=== PATIENT | male | born 1940 | race Caucasian/White ===

== ENCOUNTER 2018-10-09 09:52 | Outpatient (CLI) | payer MEDICARE | END 2018-10-09 09:53 | disposition critical access hospital (66) | LOC: EMS 09:52 | PROVIDERS: ATTEND Surgery | DX: M79.89 Other specified soft tissue disorders (principal); R23.9 Unspecified skin changes | CPT/HCPCS: A0425; A0429 ==

== ENCOUNTER 2018-10-09 10:10 | Inpatient (IN) | payer MEDICARE, OTHER ==
--- NOTE | 2018-10-09 10:30 | ED Physician Documentation ---
History of Present Illness - Stated complaint Stated Complaint: LEG PX - Chief complaint Chief Complaint: Ext Problem - History obtained from History obtained from: Patient, EMS - History of Present Illness Timing: Other (1 year ago) Pain level max: 0 Pain level now: 0 - Additonal information Additional information: 78-year-old male presents to the emergency department stating that his left leg is swollen more red than usual. This been ongoing for the past year but worsening recently. Has not seen his doctor for the past 3 years. He is a diabetic. Does not check his blood sugar. [facility] Has had a right AKA. Nothing makes it better or worse. Not having pain Review of Systems Ten Systems: 10 systems reviewed and negative Constitutional: denies: Fever, Chills Cardiac: denies: Chest pain / pressure Respiratory: denies: Cough GI: denies: Abdominal Pain, Vomiting, Diarrhea Skin: denies: Rash Musculoskeletal: denies: Neck pain, Back pain PD PAST MEDICAL HISTORY - Past Medical History Past Medical History: Yes Endocrine/Autoimmune: Type 2 diabetes - Past Surgical History Past Surgical History: Yes Other past surgical history: R AKA - Present Medications Home Medications: Ambulatory Orders Medication Instructions Recorded Confirmed Aspirin [Aspirin EC] 81 mg PO DAILY 10/09/18 10/09/18 Atorvastatin Calcium 40 mg PO DAILY 10/09/18 10/09/18 Glipizide 5 mg PO BID 10/09/18 10/09/18 Ipratropium/Albuterol [Combivent 1 puffs INH RTQID 10/09/18 10/09/18 Respimat] Loratadine [Claritin] 10 mg PO DAILY 10/09/18 10/09/18 Metoprolol Tartrate 25 mg PO BID 10/09/18 10/09/18 Prazosin HCl 1 mg PO DAILY PM 10/09/18 10/09/18 Ranitidine HCl [Acid River Guide] 150 mg PO BID 10/09/18 10/09/18 - Allergies Allergies/Adverse Reactions: Allergies Allergy/AdvReac Type Severity Reaction Status Date / Time Sulfa (Sulfonamide Allergy Unknown Verified 10/09/18 10:17 Antibiotics) - Living Situation Living Arrangement: reports: At home - Social History Does the pt smoke?: Yes Does the pt drink ETOH?: Yes - Family History Family history: reports: Non contributory PD ED PE NORMAL - Vitals Vital signs reviewed: Yes - General General: Alert and oriented X 3, No acute distress, Well developed/nourished - HEENT HEENT: PERRL, Moist mucous membranes - Neck Neck: Supple, no meningeal sign - Cardiac Cardiac: RRR - Respiratory Respiratory: No respiratory distress, Clear bilaterally - Abdomen Abdomen: Soft, Non tender, Non distended - Back Back: No spinal TTP - Derm Derm: Warm and dry - Extremities Extremities: Other (Left lower extremity swelling and erythema from the knee down. There is diffuse scaling of the skin with hyperkeratosis) - Neuro Neuro: Alert and oriented X 3 - Psych Psych: Normal mood, Normal affect Results - Vitals Vitals: Vital Signs - 24 hr 10/09/18 10/09/18 10:14 10:38 Temperature 36.3 C L 36.7 C Heart Rate 84 80 Respiratory 20 25 H Rate Blood Pressure 111/87 H 97/82 H O2 Saturation 93 94 Oxygen O2 Source Room air - Labs Labs: Laboratory Tests 10/09/18 10/09/18 10/09/18 10:27 10:35 10:35 WBC 8.2 RBC 5.15 Hgb 14.5 Hct 44.3 MCV 86.0 MCH 28.3 MCHC 32.9 RDW 15.5 H Plt Count 238 MPV 8.3 Neut # (Auto) 5.8 Lymph # (Auto) 1.5 Thomas # (Auto) 0.7 Eos # (Auto) 0.2 Baso # (Auto) 0.0 Absolute Nucleated RBC 0.00 Nucleated RBC % 0.0 ESR Sodium 134 L Potassium 3.7 Chloride 96 L Carbon Dioxide 29 Anion Gap 9.0 BUN 10 Creatinine 1.0 Estimated GFR (MDRD) 72 L Glucose 139 H Glycated Hemoglobin 6.3 H Estim Average Glucose 134 H Calcium 8.7 Total Bilirubin 0.6 AST 23 ALT 20 Alkaline Phosphatase 90 C-Reactive Protein Total Protein 6.5 L Albumin 2.8 L Globulin 3.7 Albumin/Globulin Ratio 0.8 L Lipase 42 10/09/18 10/09/18 10:35 10:35 WBC RBC Hgb Hct MCV MCH MCHC RDW Plt Count MPV Neut # (Auto) Lymph # (Auto) Thomas # (Auto) Eos # (Auto) Baso # (Auto) Absolute Nucleated RBC Nucleated RBC % ESR 26 H Sodium Potassium Chloride Carbon Dioxide Anion Gap BUN Creatinine Estimated GFR (MDRD) Glucose Glycated Hemoglobin Estim Average Glucose Calcium Total Bilirubin AST ALT Alkaline Phosphatase C-Reactive Protein < 1.0 Total Protein Albumin Globulin Albumin/Globulin Ratio Lipase - Rads (name of study) Left foot x-ray Radiology: Prelim report reviewed, EMP read contemporaneously, See rad report (Lucencies overlying first metatarsal head and plantar base of great toe proximal phalanx may be related to osteomyelitis and/or superimposed large soft tissue ulceration. Consider MRI to further characterize. 2. Potential recent proximal fourth metatarsal fracture. Recommend clinical correlation. ) PD MEDICAL DECISION MAKING - ED course Complexity details: reviewed results, re-evaluated patient, considered tiffani jaime, d/w patient, d/w family, d/w client relationship consultant ED course: 78-year-old male presents to the emergency department with left lower extremity swelling and erythema. X-ray is concerning for osteomyelitis. [facility] Will admit here for IV antibiotics and further care. Discussed case Dr. Quintana, hospitalist who accepts. Also discussed case with Dr. Franks, orthopedist. This document was made in part using voice recognition software. While efforts are made to proofread this document, sound alike and grammatical errors may occ ur. Departure - Departure Disposition: 66 [facility] DC/Xfemelia Clinical Impression: Noncompliance with diabetes treatment Osteomyelitis Qualifiers: Osteomyelitis type: unspecified type Osteomyelitis location: foot Laterality: left Qualified Code(s): M86.9 - Osteomyelitis, unspecified Diabetic neuropathy, type II diabetes mellitus Qualifiers: Diabetes mellitus group home insulin use: without middle or intermediate school principal use Qualified Code(s): E11.40 - Type 2 diabetes mellitus with diabetic neuropathy, unspecified HTN (hypertension) Qualifiers: Hypertension type: essential hypertension Qualified Code(s): I10 - Essential (primary) hypertension Condition: Stable Discharge Date/Time: 10/09/18 13:26
[2018-10-09 10:42] LABS: BASOPHILS % (AUTO) 0.5 %; EOSINOPHILS # (AUTO) 0.2 10^3/uL (0.0-0.7); EOSINOPHILS % (AUTO) 2.3 %; HGB - HEMOGLOBIN 14.5 g/dL (14.0-18.0); LYMPHOCYTES # (AUTO) 1.5 10^3/uL (1.5-3.5); LYMPHOCYTES % (AUTO) 18.3 %; MEAN CORPUSCULAR HEMOGLOBIN 28.3 pg (27.0-31.0); MEAN CORPUSCULAR HGB CONC 32.9 g/dL (32.0-36.0); MEAN PLATELET VOLUME 8.3 fL (7.4-11.4); MONOCYTES # (AUTO) 0.7 10^3/uL (0.0-1.0); MONOCYTES % (AUTO) 8.1 %; NEUTROPHILS # (AUTO) 5.8 10^3/uL (1.5-6.6); NEUTROPHILS % (AUTO) 70.8 %; PLT - PLATELET COUNT 238 10^3/uL (130-450); RED BLOOD COUNT 5.15 10^6/uL (4.70-6.10); RED CELL DISTRIBUTION WIDTH 15.5 % (12.0-15.0); WHITE BLOOD COUNT 8.2 x10^3/uL (4.8-10.8)
[2018-10-09 10:54] LABS: ALBUMIN 2.8 g/dL (3.2-5.5); ALBUMIN/GLOBULIN RATIO 0.8 (1.0-2.2); BILIRUBIN,TOTAL 0.6 mg/dL (0.2-1.0); CALCIUM 8.7 mg/dL (8.5-10.3); TOTAL PROTEIN 6.5 g/dL (6.7-8.2)
--- NOTE | 2018-10-09 11:58 | XRAY Report ---
Reason: L foot swelling, possible osteo? Procedure Date: 10/09/2018 Accession Number: [id number] / [id number] Procedure: XR - Foot 3 View LT CPT Code: FULL RESULT: EXAM: LEFT FOOT RADIOGRAPHY EXAM DATE: 10/09/2018 11:19 AM. CLINICAL HISTORY: Left foot swelling, possible osteomyelitis. COMPARISON: XR CHEST PA AND LAT 05/14/2007 8:58 AM. TECHNIQUE: 3 views. FINDINGS: Bones: Lucencies overlying first metatarsal head and plantar base of great toe proximal phalanx. Potential cortical disruption along proximal fourth metatarsal, question recent fracture. Joints: No dislocation. Soft Tissues: Deep soft tissue ulcer plantar and medial to left first metatarsophalangeal joint. Diffuse soft tissue swelling. Atherosclerotic arterial calcifications. IMPRESSION: 1. Lucencies overlying first metatarsal head and plantar base of great toe proximal phalanx may be related to osteomyelitis and/or superimposed large soft tissue ulceration. Consider MRI to further characterize. 2. Potential recent proximal fourth metatarsal fracture. Recommend clinical correlation. RADIA
[2018-10-09] MEDS ORDERED: PIPERACILLIN/TAZOBACTAM 3.375 GM in SODIUM CHLORIDE 0.9% MINIBAG 100 ML IV STA (12:20)
[2018-10-09] MEDS ORDERED: HYDROcod/ACETAM 10 MG/325 MG TABLET PO PRN (12:42)
[2018-10-09] MEDS ORDERED: HYDROmorphone 1 MG/ML CARPUJECT IVP PRN (12:42)
[2018-10-09] MEDS ORDERED: ZOLPIDEM 5 MG TABLET PO PRN (12:42)
[2018-10-09] MEDS ORDERED: VANCOMYCIN PER PHARMACY 100 GM in SODIUM CHLORIDE 0.9% 250 ML IV SCH (13:00)
[2018-10-09] MEDS ORDERED: VANCOMYCIN INJ 1.5 GM in SODIUM CHLORIDE 0.9% 500 ML IV SCH (13:00)
--- NOTE | 2018-10-09 13:11 | HISTORY & PHYSICAL EXAMINATION ---
Chief Complaint - Chief Complaint Chief Complaint: Worsening Left lower extremity edema with associated redness History of Present Illness - Admitted From Admitted From:: ED - History Obtained From Records [facility]ed[facility], [facility] records unavailable History obtained from: Patient Exam Limitations: None - History of Present Illness HPI Comment/Other: This is a 78-year-old With a past medical history significant for hypertension, hyperlipidemia, COPD, NIDDM, PTSD, diabetic neuropathy, chronic kidney disease, history of a right [id number] amputation, is a [facility] was not seen a doctor in approximately 2 to 3 years complaints of left lower extremity worsening redness with associated swelling and pain to the great toe. Patient had been going to [facility] and having his medications refilled but without seeing a physician. Patient's last debridement was on February 2017 for which he went to the [facility] in [place] and essentially was transferred to [facility] for a nonhealing diabetic left foot ulcer. Patient is essentially here for worsening of the pain around the ulcerative lesion site to his great toe with x-rays showing first metatarsal head and plantar base great toe/proximal phalanx osteomyelitis and or superimposed large soft tissue ulceration. In addition potential recent proximal fourth metatarsal fracture was also seen on left foot x-ray today. Patient denies fevers, chills, maculopapular rashes, GI or symptoms. Patient denies chest pain, shortness of breath, nausea vomiting hematemesis or hematochezia. Patient denies having heart disease heart failure or any kidney abnormalities. Patient's creatinine was 1.0 with normal electrolytes and a normal CBC. Patient CRP Was less than 1.0. Orthopedic surgery will be consulted. Patient was at bedside eating a bag of chips and a [employer] very candid about being placed on insulin sliding scale. History - Past Medical History Cardiovascular: reports: Hypertension, High cholesterol Respiratory: reports: COPD Neuro: reports: Migraines Endocrine/Autoimmune: reports: Type 2 diabetes Psych: reports: Post traumatic stress disorder MRSA Hx?: Yes Other Past Medical History: Pt poor historian. - Past Surgical History Ortho: reports: Amputation HEENT: reports: Cataracts - POLST Patient has POLST: No Meds/Allgy - Home Medications Home Medications: Ambulatory Orders Medication Instructions Recorded Confirmed Atorvastatin Calcium 40 mg PO DAILY 10/09/18 10/09/18 Glipizide 5 mg PO BID 10/09/18 10/09/18 Metoprolol Tartrate 25 mg PO BID 10/09/18 10/09/18 Prazosin HCl 1 mg PO DAILY PM 10/09/18 10/09/18 Ranitidine HCl [Acid Frozen Pie Maker] 150 mg PO BID 10/09/18 10/09/18 - Allergies Allergies/Adverse Reactions: Allergies Allergy/AdvReac Type Severity Reaction Status Date / Time Sulfa (Sulfonamide Allergy Unknown Verified 10/09/18 10:17 Antibiotics) Review of Systems - All Other Systems All Other Systems: reports: Reviewed and negative Prior Level of Functionality: Patient is independent and ambulates via wheelchair however at times walks on left lower extremity. Home ADLs independent Exam - Vital Signs Vital Signs: Vital Signs x48h Temp Pulse Resp BP Pulse Ox 10/09/18 10:38 36.7 C 80 25 H 97/82 H 94 10/09/18 10:14 36.3 C L 84 20 111/87 H 93 - Physical Exam General Appearance: positive: No acute distress, Alert Eyes Bilateral: positive: Normal inspection, PERRL, EOMI ENT: positive: ENT inspection nml, Pharynx nml, No signs of dehydration Neck: positive: Nml inspection, Thyroid nml, No JVD, Trachea midline Respiratory: positive: Chest non-tender, No respiratory distress, Breath sounds nml Cardiovascular: positive: Regular rate & rhythm, No murmur, No gallop Peripheral Pulses: positive: 0 (Unable to palpate dorsalis pedis on the left) Abdomen: positive: Non-tender, No organomegaly, Nml bowel sounds, No distention. negative: Tenderness Back: positive: Nml inspection Skin: positive: Warm, Other (Hyperkeratosis with erythematous involvement of the entire left lower extremity. Nonhealing diabetic ulcer to the base of the left great toe with no purulence and surrounding hard granulated tissue and callus. Some evidence of necrosis noted per) Extremities: positive: Other (There is market erythematous left lower extremity involvement with diabetic ulcerative lesion to the base of the great toe. Hyperkeratosis is seen along with thickening of the skin. There is presence of a right AKA.) Neurologic/Psychiatric: positive: Oriented x3, CN's nml (2-12), Sensory loss (Decreased sensation to two-point discrimination as well as soft touch to the left lower extremity. Patient however feels pain over the left great toe base.) Conclusion/Plan - Problem List (1) Chronic osteomyelitis involving ankle and foot Conclusion/Plan: Patient's left lower extremity has been an issue for quite some time. Last incision drainage debridement was apparently done 02/20 in [facility] and this was transferred then to [facility]. However, patient due to noncompliance and poor follow-up likely has chronic infection to the metatarsal head and plantar base of great toe with proximal phalanx involvement seen on x-rays. There is also a potential recent proximal fourth metatarsal fracture. Will obtain an MRI of the entire left leg to include the tibia-fibula foot and ankle. Orthopedic surgery to be consulted for possible amputation. We will continue w ith IV vancomycin/Zosyn for empiric coverage. If surgery is contemplated would send amputated specimen to pathology. Wound care consult will be ordered. Qualifiers: Laterality: left Qualified Code(s): M86.672 - Other chronic osteomyelitis, left ankle and foot (2) Cellulitis of leg without foot Conclusion/Plan: Patient with likely underlying peripheral vascular disease. Was unable to obtain a palpable dorsalis pedis to the left foot. Obtain arterial Doppler flow/SUMA. Patient with chronic edema to the left lower extremity. Patient was placed on IV vancomycin/Zosyn for empiric coverage. Wound care consult placed. Pain control, glycemic control indicated. (3) Diabetes mellitus type 2 with complications, uncontrolled Conclusion/Plan: Patient has macro and microvascular Complications to his NIDDM. Patient with a left AKA, likely has underlying vascular disease with poor wound healing. Patient is obviously noncompliant, hemoglobin A1c to follow as well as an insulin sliding scale with possible bolus basal coverage. Diabetic education counseling indicated. (4) Diabetic neuropathy, type II diabetes mellitus Conclusion/Plan: Patient has numbness to the left lower extremity likely from chronic uncontrol led diabetic macro and microvascular changes. Patient to possibly benefit from Neurontin versus Lyrica. Continue to control and manage underlying comorbidities. Qualifiers: Diabetes mellitus long-term insulin use: without long-term use Qualified Code(s): E11.40 - Type 2 diabetes mellitus with diabetic neuropathy, unspecified (5) Diabetic ulcer of toe Conclusion/Plan: Patient has a nonhealing chronic diabetic ulcer with associated osteomyelitis seen on x-ray. Would continue with aggressive glycemic control, wound care with consult to follow, possible need for surgery to correct underlying ost eomyelitis. Qualifiers: Diabetes mellitus type: type 2 Non-pressure ulcer stage: with necrosis of bone (6) Noncompliance with diabetes treatment Conclusion/Plan: Patient will require diabetic education and counseling for glycemic control. (7) CKD (chronic kidney disease) Conclusion/Plan: Unclear of baseline creatinine. Upon admission patient's creatinine was 1.0 will obtain old records. Qualifiers: Chronic kidney disease stage: unspecified stage Qualified Code(s): N18.9 - Chronic kidney disease, unspecified (8) HTN (hypertension) Conclusion/Plan: Continue with oral BP meds. Control for BP excursions Qualifiers: Hypertension type: essential hypertension Qualified Code(s): I10 - Essential (primary) hypertension (9) Hypolipidemia Conclusion/Plan: Obtain a lipid panel fasting. Resume a statin if indicated. (10) Advanced care planning/counseling discussion Conclusion/Plan: Patient's multiple medical conditions were thoroughly discussed along with Disease management, plan of care and trajectory of illness. Patient would like to be a DNR and will need [facility] - Lab Results Lab results reviewed: Yes Fish Bones: 10/09/18 10:35 10/09/18 10:35 - Diagnostic Imaging Results Diagnostic Imaging Results: positive: Final report reviewed - EKG Results EKG Interpreted Independently: No Core Measures - Anticipated LOS I expect patient to be DC'd or transferred within 96 hours.: Yes - Issues Hospital Issues and Management Plan: Patient is pending an MRI and based on this patient may or may not received a TMA versus BKA if Extensive osteomyelitis is seen. Orthopedic surgery to evaluate. Patient may need TCU placement. - DVT/VTE - Prophylaxis VTE/DVT Device ordered at admit?: No Not Ordered - Medical Reason: Contraindicated (Patient with active infection) VTE/DVT Prophylaxis med ordered at admit?: Yes - Stroke - Rehab Assessment Rehab services assessment to be ordered?: No Not Ordered - Medical Reason: Not indicated - AMI - Statin at Admit Aspirin Prescribed on Admit: Yes
[2018-10-09] MEDS ORDERED: VANCOMYCIN INJ 2 GM in SODIUM CHLORIDE 0.9% 500 ML IV STA (13:25)
[2018-10-09] MEDS ORDERED: SODIUM CHLORIDE 0.9% 500 ML IV ONE (14:01)
[2018-10-09] MEDS: HEPARIN 5,000 UNIT/ML VIAL SUBQ SCH ×2 (14:11→21:46)
[2018-10-09] MEDS: SODIUM CHLORIDE FLUSH 0.9% 10 ML SYRINGE IVP PRN (14:14)
[2018-10-09] MEDS ORDERED: SODIUM CHLORIDE 0.9% 500 ML IV PRN (14:21)
[2018-10-09 14:54] LABS: HB2 TOTAL 15.2 g/dL; HEMOGLOBIN A1C 0.69 g/dL; HEMOGLOBIN A1C % 6.3 % (4.6-6.2)
[2018-10-09] MEDS: glipiZIDE 5 MG TABLET PO SCH (17:08)
[2018-10-09] MEDS: INSULIN ASPART 300 UNIT/3 ML PEN SUBQ SCH ×2 (17:15→21:07)
[2018-10-09] MEDS: SODIUM CHLORIDE FLUSH 0.9% 10 ML SYRINGE IVP SCH (17:16)
[2018-10-09] MEDS: PIPERACILLIN/TAZOBACTAM 4.5 GM in SODIUM CHLORIDE 0.9% MINIBAG 100 ML IV SCH (18:47)
--- NOTE | 2018-10-09 19:20 | MRI Report ---
Reason: Osteomyelitis Procedure Date: 10/09/2018 Accession Number: [id number] / [id number] Procedure: MRI - Foot LT W/O CPT Code: FULL RESULT: EXAM: LEFT FOREFOOT MRI WITHOUT CONTRAST EXAM DATE: 10/09/2018 05:27 PM. CLINICAL HISTORY: Diabetic ulcer plantar aspect great toe. Cellulitis foot and leg. COMPARISON: FOOT 3 VIEW LT 10/09/2018 11:02 AM XR CHEST PA AND LAT 05/14/2007 8:58 AM. TECHNIQUE: Multiplanar, multisequence T1-weighted and fluid-sensitive sequences of the forefoot without contrast. Other: None. FINDINGS: Bones: No fractures or subluxations. No marrow edema. No bone lesions. Negative for marrow edema or decreased marrow signal T1-weighted images to suggest osteomyelitis. Articular Cartilage: Unremarkable. Tendons: Tenosynovitis extensor tendon second toe. Tenosynovitis extensor tendon third toe. Musculature: Diffuse myositis. Other: Diffuse forefoot myositis. The visualized portion of the tarsal tunnel is unremarkable. No intermetatarsal bursitis. Large ulceration 3.4 cm in AP dimension at 2.3 cm in height medial aspect first metatarsal phalangeal joint. Negative for associated abscess. Increased fluid at the intermetatarsal bursa first and second metatarsal heads. Severe edema with cellulitis dorsum foot. Possible subcutaneous fluid collection or abscess dorsum foot 4.0 x 1.2 cm in transverse dimension and 3.5 cm in length dorsal aspect second metatarsal. IMPRESSION: 1. Large ulceration medial aspect first metatarsal phalangeal joint with no associated osteomyelitis. 2. Small fluid collection first and second metatarsal head intermetatarsal bursa. 3. Diffuse forefoot cellulitis and myositis. 4. Second and third digit extensor tendon tenosynovitis. 5. Possible loculated subcutaneous fluid collection dorsal aspect forefoot 4.0 x 1.2 cm in transverse dimension and 3.5 cm in length. Possible early abscess. RADIA
[2018-10-09] MEDS: FAMOTIDINE 20 MG TABLET PO SCH (21:01)
[2018-10-09] MEDS: PRAZOSIN 1 MG CAPSULE PO SCH (21:01)
[2018-10-09] MEDS: METOPROLOL TARTRATE 25 MG TABLET PO SCH (21:01)
[2018-10-09] MEDS: ATORVASTATIN 40 MG TABLET PO SCH (21:06)
[2018-10-10] MEDS: PIPERACILLIN/TAZOBACTAM 4.5 GM in SODIUM CHLORIDE 0.9% MINIBAG 100 ML IV SCH ×4 (00:18→17:33)
[2018-10-10] MEDS: SODIUM CHLORIDE FLUSH 0.9% 10 ML SYRINGE IVP SCH ×3 (00:19→17:13)
[2018-10-10] MEDS: VANCOMYCIN INJ 1 GM, VANCOMYCIN INJ 500 MG in SODIUM CHLORIDE 0.9% 500 ML IV SCH ×2 (02:08→15:01)
[2018-10-10] MEDS: IPRATROPIUM/ALBUTEROL 3 ML NEB INH PRN ×2 (02:44→17:30)
[2018-10-10] MEDS ORDERED: SODIUM CHLORIDE FLUSH 0.9% 10 ML SYRINGE ONE ×2 (03:11→06:42)
[2018-10-10] MEDS ORDERED: LORazepam 1 MG TABLET PO PRN (03:15)
[2018-10-10] MEDS: HEPARIN 5,000 UNIT/ML VIAL SUBQ SCH (06:24)
[2018-10-10] MEDS: ONDANSETRON ODT 4 MG TABLET TL PRN (06:46)
[2018-10-10 07:24] LABS: BASOPHILS % (AUTO) 0.7 %; EOSINOPHILS # (AUTO) 0.2 10^3/uL (0.0-0.7); EOSINOPHILS % (AUTO) 2.7 %; HGB - HEMOGLOBIN 13.4 g/dL (14.0-18.0); LYMPHOCYTES # (AUTO) 1.3 10^3/uL (1.5-3.5); LYMPHOCYTES % (AUTO) 22.4 %; MEAN CORPUSCULAR HEMOGLOBIN 27.8 pg (27.0-31.0); MEAN CORPUSCULAR HGB CONC 32.4 g/dL (32.0-36.0); MEAN CORPUSCULAR VOLUME 85.9 fL (80.0-94.0); MEAN PLATELET VOLUME 8.4 fL (7.4-11.4); MONOCYTES # (AUTO) 0.4 10^3/uL (0.0-1.0); MONOCYTES % (AUTO) 6.7 %; NEUTROPHILS % (AUTO) 67.5 %; PLT - PLATELET COUNT 194 10^3/uL (130-450); RED BLOOD COUNT 4.81 10^6/uL (4.70-6.10); RED CELL DISTRIBUTION WIDTH 15.7 % (12.0-15.0)
[2018-10-10 07:31] LABS: ALBUMIN 2.6 g/dL (3.2-5.5); CALCIUM 8.4 mg/dL (8.5-10.3); PHOSPHORUS 3.6 mg/dL (2.5-4.6)
[2018-10-10] MEDS: INSULIN ASPART 300 UNIT/3 ML PEN SUBQ SCH ×4 (08:36→21:27)
--- NOTE | 2018-10-10 09:00 | Ultrasound Report ---
Reason: PAD Procedure Date: 10/10/2018 Accession Number: [id number] / [id number] Procedure: US - Duplex Lwr Ext Arterial LT CPT Code: FULL RESULT: EXAM: LEFT LOWER EXTREMITY ARTERIAL DOPPLER ULTRASOUND EXAM DATE: 10/10/2018 08:15 AM. CLINICAL HISTORY: Peripheral arterial disease. No dorsalis pedis pulse. COMPARISON: None. TECHNIQUE: Real-time sonographic vascular imaging was performed by the flight deck officer, utilizing color-flow, Doppler flow, and spectral analysis. Multiple retail representative static images were saved for review. FINDINGS: Grayscale interrogation of the left lower extremity demonstrates diffuse atherosclerotic disease. The left common femoral artery and profunda femoris are patent by color Doppler on both demonstrate a relatively brisk preserved arterial upstroke on spectral Doppler. The SFA is occluded throughout its essentially entire course. There is reconstitution at the level of the popliteal artery with tardus parvus waveform which persists as a patent three-vessel supply to the foot with tardus parvus waveform in the anterior, posterior tibial arteries and peroneal artery. Tardus parvus flow is detected by spectral Doppler the dorsalis pedis artery. Left Lower Extremity: WARP TIER: PSV 114 cm/sec. PSFA: Occluded. MSFA: Occluded. DSFA: Occluded. PFA: PSV 115 cm/sec. POP: PSV 68 cm/sec. FESTUS: PSV 34 cm/sec. HAND FOLDER: PSV 44 cm/sec. AURELIA: PSV 26 cm/sec. DPA: PSV 7 cm/sec. IMPRESSION: Long segment occlusion of the SFA with reconstitution at the level of the popliteal artery from the deep femoral artery and three-vessel patency below the knee. Recommendation: Attempt at worship of in-line flow with endovascular recanalization of the SFA versus bypass. Findings were discussed with Dr. Evans in person at the time of the examination interpretation. RAHEEM
[2018-10-10] MEDS ORDERED: HEPARIN 5,000 UNIT/ML VIAL IVP ONE (11:30)
[2018-10-10] MEDS ORDERED: SODIUM CHLORIDE 0.9% MINIBAG 100 ML IV ONE (11:36)
[2018-10-10] MEDS: METOPROLOL TARTRATE 25 MG TABLET PO SCH ×2 (11:46→21:28)
[2018-10-10] MEDS: glipiZIDE 5 MG TABLET PO SCH ×2 (11:46→17:32)
[2018-10-10] MEDS: FAMOTIDINE 20 MG TABLET PO SCH ×2 (11:46→21:32)
[2018-10-10] MEDS: POLYETHYLENE GLYCOL 3350 17 GM PACKET PO SCH (11:51)
[2018-10-10] MEDS: HEPARIN 25000UNITS/500ML (D5W) 25,000 UNIT/500 ML BAG IV SCH (12:22)
--- NOTE | 2018-10-10 15:41 | CONSULTATION NOTE ---
DATE OF SERVICE: 10/09/2018 Physician: Maya Franks MD ORTHOPEDIC CONSULTATION REQUESTING PROVIDER: Amelia Evans MD INDICATIONS FOR THE CONSULTATION: Left foot wound and osteomyelitis. HISTORY OF PRESENT ILLNESS: Patient is a 78-year-old male admitted through the emergency room with increasing pain in the left foot that has had a chronic ulceration for a long period of time, somewhat indeterminate. Patient is status post a right above-knee amputation for infection of his right foot. He is diabetic. He has been a frequent visitor to the emergency room for medical problems in the last year. His history is obtained from the patient. PAST MEDICAL HISTORY: He is not an accurate historian when reviewing information given with that in the medical record, but of note is that his prior history is positive for type 2 diabetes. PAST SURGICAL HISTORY: Right AK amputation. MEDICATIONS: List reviewed. ALLERGIES: SULFA. PHYSICAL EXAMINATION: Exam shows him to be lying in bed, and arousable and semi-oriented. He does complain of some pain, not severe in his left foot, but definitely severe pain if he tries to bear weight or his foot is touched. His upper extremities seem normal, and his abdomen and pelvis are nontender. Right lower extremity has a well-healed above-knee amputation. His left foot is exposed, and he has a pinkish cellulitis that is diffuse up to just below the knee. The skin itself has crusting ichthyosis type of appearance, and his distal nails are fungal infected and curled and large. Pulses are not palpable from the knee distal, and the foot is slightly cool but seems to have normal capillary refill. The patient is able to move his foot but has pain when doing, and he claims some sensation but diminished. DIAGNOSTIC DATA: X-rays are reviewed, and the patient has lucencies in the area of the first metatarsal, but no evidence of air in the joint itself and no gross evidence of erosion of bone. IMPRESSION: This is a diabetic male in poor condition, both medically, and in regard to his general medical and healthcare and maintenance, who has a chronic open wound of his left foot and may have osteomyelitis of the first metatarsophalangeal joint. His vascular supply is in question. Recommendation is for proceeding with evaluation by Doppler ultrasound to review the status of his vascular supply and also MRI scan to evaluate for osteomyelitis. My feeling is that the patient may need revascularization of his extremity before any surgery could be undertaken, in order to have it be successful. [place] if [place] his choice, he could be transferred back for amputation once he has had a successful revascularization procedure. TD: 10/10/2018 13:33 [id number]
[2018-10-10] MEDS ORDERED: MULTIVITAMIN W/MINERALS TABLET PO SCH (16:00)
[2018-10-10] MEDS ORDERED: ASCORBIC ACID CHEW 500 MG TABLET PO SCH (16:00)
--- NOTE | 2018-10-10 17:00 | PROVIDER PROGRESS NOTE ---
Assessment/Plan - Problem List (1) Ischemic leg ulcer Assessment/Plan: The Du[plex Doppler has demonstrated femoral occlusion, but there is mild recannalization below the knee. Case discussed with IR, Dr Way, who states that larger hospitals would have the ability to perform recannalization. Wound Consult with [facility] C[facility] REGISTER SERVICER appreciated. Continue pain control meds prn. (2) Chronic osteomyelitis involving ankle and foot Qualifiers: Laterality: left Qualified Code(s): M86.672 - Other chronic osteomyelitis, left ankle and foot Assessment/Plan: Appreciate Ortho input and planning surgery perhaps. I spoke to Dr Franks today, will feed the patient as surgery will be postponed. Continue iv antibiotics. (3) Diabetes mellitus type 2 with complications, uncontrolled Assessment/Plan: Continue carb controlled diet and ss Insulin. (4) HTN (hypertension) Qualifiers: Hypertension type: essential hypertension Qualified Code(s): I10 - Essential (primary) hypertension Assessment/Plan: Continue BP meds. (5) Noncompliance with diabetes treatment Assessment/Plan: He was non-compliant with appointments to manage his chronic wound, however A1c is good. (6) Hx of right BKA Assessment/Plan: Stable - Current Meds Current Meds: Current Medications Generic Name Dose Route Start Last Admin Trade Name Freq PRN Reason Stop Dose Admin Hydrocodone Bitart/Acetaminophen 1 tab 10/09/18 12:42 10/09/18 17:08 [place] 10 Mg/325 Mg PO 1 tab Q4HR PRN Administration Pain 8 to 10 Albuterol/Ipratropium 3 ml 10/10/18 02:37 10/10/18 02:44 Duoneb INH 3 ml Q4HR PRN Administration Wheezing Atorvastatin Calcium 40 mg 10/09/18 21:00 10/09/18 21:06 Lipitor PO 40 mg QPM STEPH Administration Famotidine 20 mg 10/09/18 21:00 10/10/18 11:46 Pepcid PO 20 mg BID STEPH Administration Glipizide 5 mg 10/09/18 17:00 10/10/18 11:46 Glucotrol PO 5 mg BIDWM STEPH Administration Piperacillin Sod/Tazobactam 100 mls @ 200 mls/hr 10/09/18 18:00 10/10/18 16:07 Sod 4.5 gm/ Sodium Chloride IV Infused Q6H STEPH Infusion Vancomycin HCl 1 gm/ 500 mls @ 250 mls/hr 10/10/18 02:00 10/10/18 15:01 Vancomycin HCl 500 mg/ Sodium IV 250 mls/hr Chloride Q12H STEPH Administration Sodium Chloride 500 mls @ 0 mls/hr 10/09/18 14:21 10/10/18 07:52 Normal Saline 0.9% IV Infused Q24H PRN Infusion TKO RATE TKO Heparin Sodium/Dextrose 25,000 unit in 500 mls @ 23.95 mls/hr 10/10/18 12:00 10/10/18 12:22 IV 12 unit/kg/hr .[id number] STEPH 23.95 mls/hr Administration Protocol 12 UNIT/KG/HR Insulin Aspart 2 - 10 unit 10/09/18 17:00 10/10/18 12:04 Novolog SUBQ Not Given 0800,1200,1700,2100 [facility] Protocol Lorazepam 1 mg 10/10/18 03:15 10/10/18 03:29 Ativan PO 1 mg Q6H PRN Administration Anxiety Metoprolol Tartrate 25 mg 10/09/18 21:00 10/10/18 11:46 Lopressor PO 25 mg BID STEPH Administration Ondansetron HCl 4 mg 10/09/18 12:42 10/10/18 06:46 Zofran Odt TL 4 mg Q6HR PRN Administration Nausea / Vomiting Combivent Respimat 1 each 10/10/18 15:00 10/10/18 16:04 INH 1 each RTQID STEPH Administration Polyethylene Glycol 17 gm 10/10/18 09:00 10/10/18 11:51 Miralax PO Not Given DAILY [facility] Prazosin HCl 1 mg 10/09/18 21:00 10/09/18 21:01 Minipress PO 1 mg QPM STEPH Administration Sodium Chloride 10 ml 10/09/18 12:42 10/09/18 14:14 Normal Saline Flush 0.9% IVP 10 ml PRN PRN Administration NEEDED PER PROVIDER ORDERS Sodium Chloride 10 ml 10/09/18 17:00 10/10/18 08:42 Normal Saline Flush 0.9% IVP 10 ml 0100,0900,1700 STEPH Administration - Lab Result Fish Bone Diagrams: 10/11/18 07:59 10/11/18 07:59 - Additional Planning My Orders: My Active Orders 10/10/18 12:00 Heparin [id number]/500Ml (D5w) 25,000 unit in 500 ml IV 12 unit/kg/hr 10/10/18 15:00 Patient Own Med [Patient Own Medication] 1 each INH RTQID 10/10/18 16:00 Ascorbic Acid Chew [Vitamin C] 500 mg PO DAILY Multivitamin W/Minerals [Theragran M] 1 tab PO DAILYWM 10/10/18 17:00 Saccharomyces Boulardii [Florastor] 250 mg PO BIDWM 10/10/18 18:00 Heparin 2,500 unit IVP Q6H PRN 10/10/18 18:25 Anti Xa [FACTOR XA] [COAG] Timed 10/10/18 Lunch Carb-controlled Diet [DIET] 10/11/18 09:00 Cholecalciferol [Vitamin D3] 1,000 unit PO DAILY Zinc Sulfate 220 mg PO DAILY Subjective - Subjective Patient Reports: Resting Comfortably, Other (No pain in L leg or foot currently) Objective Vital Signs: Vital Signs - 24 hr 10/10/18 10/10/18 10/10/18 00:00 02:44 08:00 Temperature 36.4 C L 36.6 C Heart Rate 81 Heart Rate [ 77 82 Brachial] Respiratory 22 20 20 Rate Blood Pressure Blood Pressure 141/41 H 154/66 H [Right Brachial artery] O2 Saturation 92 95 10/10/18 10/10/18 10/10/18 10:30 11:46 15:51 Temperature 37.0 C Heart Rate 111 H Heart Rate [ 87 Brachial] Respiratory 22 20 Rate Blood Pressure 186/68 H Blood Pressure 122/66 [Right Brachial artery] O2 Saturation 94 Oxygen O2 Source Nasal cannula I&O (Last 24 Hrs): Intake and Output Totals x24h 10/08/18 10/09/18 10/10/18 23:59 23:59 23:59 Intake Total 1350 2290 Output Total 400 850 Balance 950 1440 General: Alert HEENT: Mucous membr. moist/pink, Other (Disheveled) Neck: Supple, No JVD Neuro: Non Focal Cardiovascular: No murmurs Respiratory: No respiratory distress, Breath sounds nml Abdomen: Soft Extremities: Other (R BKA. L leg is reddened, 1+ edema, ulcerated 1st toe. Left femoral artery 0/3 pulse.) - Results Results: Laboratory Results WBC 6.0 x10^3/uL (4.8-10.8) 10/10/18 07:12 RBC 4.81 10^6/uL (4.70-6.10) 10/10/18 07:12 Hgb 13.4 g/dL (14.0-18.0) L 10/10/18 07:12 Hct 41.4 % (42.0-52.0) L 10/10/18 07:12 MCV 85.9 fL (80.0-94.0) 10/10/18 07:12 MCH 27.8 pg (27.0-31.0) 10/10/18 07:12 MCHC 32.4 g/dL (32.0-36.0) 10/10/18 07:12 RDW 15.7 % (12.0-15.0) H 10/10/18 07:12 Plt Count 194 10^3/uL (130-450) 10/10/18 07:12 MPV 8.4 fL (7.4-11.4) 10/10/18 07:12 Neut # (Auto) 4.0 10^3/uL (1.5-6.6) 10/10/18 07:12 Lymph # (Auto) 1.3 10^3/uL (1.5-3.5) L 10/10/18 07:12 [place] # (Auto) 0.4 10^3/uL (0.0-1.0) 10/10/18 07:12 Eos # (Auto) 0.2 10^3/uL (0.0-0.7) 10/10/18 07:12 Baso # (Auto) 0.0 10^3/uL (0.0-0.1) 10/10/18 07:12 Absolute Nucleated RBC 0.00 x10^3/uL 10/10/18 07:12 Nucleated RBC % 0.0 /100WBC 10/10/18 07:12 ESR 26 mm/Hr (0-20) H 10/09/18 10:35 Sodium 136 mmol/L (135-145) 10/10/18 07:12 Potassium 4.1 mmol/L (3.5-5.0) 10/10/18 07:12 Chloride 99 mmol/L (101-111) L 10/10/18 07:12 Carbon Dioxide 29 mmol/L (21-32) 10/10/18 07:12 Anion Gap 8.0 (6-13) 10/10/18 07:12 BUN 9 mg/dL (6-20) 10/10/18 07:12 Creatinine 1.0 mg/dL (0.6-1.2) 10/10/18 07:12 Estimated GFR (MDRD) 72 (>89) L 10/10/18 07:12 Glucose 145 mg/dL (70-100) H 10/10/18 07:12 POC Whole Bld Glucose 131 mg/dL (70 - 100) H 10/10/18 16:35 Glycated Hemoglobin 6.3 % (4.6-6.2) H 10/09/18 10:27 Estim Average Glucose 134 (70-100) H 10/09/18 10:27 Calcium 8.4 mg/dL (8.5-10.3) L 10/10/18 07:12 Phosphorus 3.6 mg/dL (2.5-4.6) 10/10/18 07:12 Total Bilirubin 0.6 mg/dL (0.2-1.0) 10/09/18 10:35 AST 23 IU/L (10-42) 10/09/18 10:35 ALT 20 IU/L (10-60) 10/09/18 10:35 Alkaline Phosphatase 90 IU/L (42-121) 10/09/18 10:35 C-Reactive Protein < 1.0 mg/dL (0-1.0) 10/09/18 10:35 Total Protein 6.5 g/dL (6.7-8.2) L 10/09/18 10:35 Albumin 2.6 g/dL (3.2-5.5) L 10/10/18 07:12 Globulin 3.7 g/dL (2.1-4.2) 10/09/18 10:35 Albumin/Globulin Ratio 0.8 (1.0-2.2) L 10/09/18 10:35 Lipase 42 U/L (22-51) 10/09/18 10:35
--- NOTE | 2018-10-10 17:15 | ADVANCE CARE PLANNING NOTE ---
Advance Care Planning - Date/Time Date: 10/10/18 Time: 09:15 - Purpose of encounter Text: To determine his wishes regarding CODE STATUS and aggressiveness of care - Parties in attendance Parties in attendance: I spoke to the patient, he was supine in bed, and his RN Alfred Thompson was in the room throughout the entire. - Decisional capacity Decisional capacity of: He is oriented to person, place and time, appears to be able to state his wishes - Subjective/Patient's story Subjective/Patient's story: He lives in a Duplex, was doing his own meals. He does not say why he was non- compliant with medical management. - Objective/Medical story Objective/Medical Story: The patient has had a R BKA. He was admitted for management of pain from a toe ulcer of the L foot. Work up shows DM poorly controlled and chronic osteo and ishemic L leg with a chronically occluded L femoral artery. I requested his permission to work on having him transferred for higher level of care to have peripheral stenting done to the left femoral artery by Interventional Radiology. The patient did not want to be transferred to [facility] because "he does not like [place]". He did not want to be transferred to [facility] in [place] because he "does not like [place]". He did not want to be transferred to anywhere in [place] because he "does not want to go to [place]". He did agree to be transferred to [facility]. I then told him that this limits his potential locations for care and it may lead to complications such as requiring the left leg to be amputated. To this the patient stated "if I lose the leg, that is God's will". I then asked what his wishes are if he has a cardiac arrest. He said that he wants nature to take it's course, therefore to be a DNR. - Goals of Care Goals of care determinations: Continue with current plan for management of the chronic osteomyelitis, toe ulcer, ischemic leg, diabetes. He changed his mind after this discussion and stated he wants to "still think about" being a DNR. - Plan Plan: As above and Goals of care. The POLST form was left in his room to review and decide. - Code Status Code Status: Attempt Resuscitation - Time Spent on Advance Care Planning Time spent on advance care plannin min
[2018-10-10] MEDS: SACCHAROMYCES BOULARDII 250 MG CAPSULE PO SCH (17:32)
[2018-10-10] MEDS: ATORVASTATIN 40 MG TABLET PO SCH (21:32)
[2018-10-10] MEDS: PRAZOSIN 1 MG CAPSULE PO SCH (21:32)
[2018-10-11] MEDS: PIPERACILLIN/TAZOBACTAM 4.5 GM in SODIUM CHLORIDE 0.9% MINIBAG 100 ML IV SCH ×5 (00:39→23:53)
[2018-10-11] MEDS: SODIUM CHLORIDE FLUSH 0.9% 10 ML SYRINGE IVP SCH ×4 (00:40→23:54)
[2018-10-11] MEDS ORDERED: WATER FOR INJECTION,STERILE 30 ML ONE (02:27)
[2018-10-11] MEDS: VANCOMYCIN INJ 1 GM, VANCOMYCIN INJ 500 MG in SODIUM CHLORIDE 0.9% 500 ML IV SCH ×3 (02:36→20:03)
[2018-10-11] MEDS: IPRATROPIUM/ALBUTEROL 3 ML NEB INH PRN ×3 (07:38→14:41)
[2018-10-11 07:39] LABS: ABG BASE EXCESS -0.7 mmol/L (-2.0-3.0); ABG OXYGEN SATURATION 97 % (94-98); ABG PO2 108 mmHg (80-100); ABG TCO2 32.4 MMOL/L (21.0-29.0)
[2018-10-11 07:40] LABS: ALLEN TEST POSITIVE
[2018-10-11 07:44] LABS: ABG PCO2 80 mmHg (34-45); ABG PH 7.19 (7.35-7.45)
[2018-10-11] MEDS ORDERED: SODIUM CHLORIDE FLUSH 0.9% 10 ML SYRINGE IVP PRN (07:48)
[2018-10-11] MEDS ORDERED: MORPHINE 2 MG/ML SYRINGE IVP PRN (07:49)
[2018-10-11] MEDS: HEPARIN 25000UNITS/500ML (D5W) 25,000 UNIT/500 ML BAG IV SCH (08:01)
[2018-10-11 08:07] LABS: BASOPHILS # (AUTO) 0.1 10^3/uL (0.0-0.1); BASOPHILS % (AUTO) 0.6 %; EOSINOPHILS # (AUTO) 0.1 10^3/uL (0.0-0.7); EOSINOPHILS % (AUTO) 0.6 %; HGB - HEMOGLOBIN 14.2 g/dL (14.0-18.0); LYMPHOCYTES # (AUTO) 0.8 10^3/uL (1.5-3.5); MEAN CORPUSCULAR HEMOGLOBIN 28.6 pg (27.0-31.0); MEAN CORPUSCULAR HGB CONC 32.2 g/dL (32.0-36.0); MEAN CORPUSCULAR VOLUME 88.9 fL (80.0-94.0); MEAN PLATELET VOLUME 8.5 fL (7.4-11.4); MONOCYTES # (AUTO) 0.5 10^3/uL (0.0-1.0); MONOCYTES % (AUTO) 5.4 %; NEUTROPHILS # (AUTO) 7.3 10^3/uL (1.5-6.6); NEUTROPHILS % (AUTO) 84.4 %; PLT - PLATELET COUNT 164 10^3/uL (130-450); RED BLOOD COUNT 4.94 10^6/uL (4.70-6.10); WHITE BLOOD COUNT 8.7 x10^3/uL (4.8-10.8)
--- NOTE | 2018-10-11 08:07 | PROVIDER PROGRESS NOTE ---
Box Car Washer Note - Box Car Washer Note Box Car Washer Note: Was called to bedside around 7:15 on 10/11/18 because the patient was having acute respiratory failure with hypoxia. His oxygen saturation level had dropped into 80's. He had just been help to the bathroom. He was placed on a non-rebreather with slight improvement transiently into the low 90's. At bedside he was responding to verbal command but was very irritable. It was reported that he had one episode of this overnight around 03:30 am, was placed on 10L oxymask and slowly improved back to the 90%. ABG showed a pH of 7.19 and a pCO2 of 80. CXR showed was concerning for an atypical pneumonia on the left side. He was placed on bipap and transferred to the ICU. He had some blood-tinged sputum so his heparin was discontinued He is on vancomycin and zosyn. Levaquin was added for atypical coverage.
--- NOTE | 2018-10-11 08:13 | XRAY Report ---
Reason: acute respiratory distress with hypoxia Procedure Date: 10/11/2018 Accession Number: [id number] / [id number] Procedure: XR - Chest 1 View X-Ray CPT Code: 29495 FULL RESULT: EXAM: CHEST RADIOGRAPHY EXAM DATE: 10/11/2018 07:45 AM. CLINICAL HISTORY: Acute respiratory distress with hypoxia. COMPARISON: XR CHEST PA AND LAT 05/14/2007 8:58 AM. TECHNIQUE: 1 view. FINDINGS: Lungs/Pleura: Diffuse increased interstitial markings throughout the left lung and to a lesser extent the right lower lobe. This is new from the prior examination. Patchy appearance in the left lung base. Mediastinum: Within exam limitations, the cardiomediastinal contour is normal. Other: None. IMPRESSION: Diffuse increased interstitial markings throughout the left and to a lesser extent the right lower lobe with a more patchy appearance in the left lung base. Findings are nonspecific but can be seen in the setting of bronchitis and viral infection. RADIA
[2018-10-11] MEDS: SODIUM CHLORIDE 0.9% 1,000 ML IV SCH ×2 (08:17→20:03)
[2018-10-11 08:19] LABS: ALBUMIN 2.6 g/dL (3.2-5.5); ALBUMIN/GLOBULIN RATIO 0.8 (1.0-2.2); BILIRUBIN,TOTAL 0.9 mg/dL (0.2-1.0); CALCIUM 8.5 mg/dL (8.5-10.3)
--- NOTE | 2018-10-11 08:35 | PROVIDER PROGRESS NOTE ---
Assessment/Plan - Problem List (1) Acute respiratory failure with hypoxia and hypercapnia Assessment/Plan: Pt developed worsening SOB and a cough overnight, and sats dropped into 80's%. This a.m. his ABG showed respiratory acidosis. Pt was moved to the ICU and BIPAP was started, sats improved to 93% on 100% FIO2. Continue BIAP, follow ABG. Intubation would be used if he does not stabilize on BIPAP. Because of BIPAP need, he will be NPO. Will change many of his meds to iv. His BNP was elevated in 400's. There has never been a BNP here before to compare. Will obtain an Echo to evaluate for CHF. (2) HCAP (healthcare-associated pneumonia) Assessment/Plan: L sided extensive interstitial infiltrate seen on CXR fom this a.m. Since a viral pneumonia was discussed as differential, by Radiologist, will check fro Influenza A & B, start Tamiflu if positive, Will broaden antibiotics to cover atypical bacteria and continue Pip/Tazo and Vancomycin for a HCAP. Schedule nebs. Start BIPAP in ICU and follow ABGs. Follow CXR daily. (3) Ischemic leg ulcer Assessment/Plan: Due to blood tinged sputum, his Heparin drip was stopped. He would not be a candidate for transfer for elective IR or [place] surgery recannalization of the occluded L femoral artery today. Heparin will be restarted if his H/H does not drop and if blood tinged sputum improves. (4) Chronic osteomyelitis involving ankle and foot Qualifiers: Laterality: left Qualified Code(s): M86.672 - Other chronic osteomyelitis, left ankle and foot Assessment/Plan: Continue iv antibiotics. I discussed course with Dr Franks of Orthopedics. (5) Diabetes mellitus type 2 with complications, uncontrolled Assessment/Plan: Will change ss Insulin to NPO, resume as before, when possible with DM diet. (6) HTN (hypertension) Qualifiers: Hypertension type: essential hypertension Qualified Code(s): I10 - Essential (primary) hypertension Assessment/Plan: Will change to iv forms of BP meds while on BIPAP and NPO. (7) Noncompliance with diabetes treatment Assessment/Plan: As per Hx. (8) Hx of right BKA Assessment/Plan: As per Hx. - Current Meds Current Meds: Current Medications Generic Name Dose Route Start Last Admin Trade Name Freq PRN Reason Stop Dose Admin Hydrocodone Bitart/Acetaminophen 1 tab 10/09/18 12:42 10/09/18 17:08 [place] 10 Mg/325 Mg PO 1 tab Q4HR PRN Administration Pain 8 to 10 Albuterol/Ipratropium 3 ml 10/10/18 02:37 10/11/18 07:38 Duoneb INH 3 ml Q4HR PRN Administration Wheezing Atorvastatin Calcium 40 mg 10/09/18 21:00 10/10/18 21:32 Lipitor PO 40 mg QPM STEPH Administration Piperacillin Sod/Tazobactam 100 mls @ 200 mls/hr 10/09/18 18:00 10/11/18 06:59 Sod 4.5 gm/ Sodium Chloride IV Infused Q6H STEPH Infusion Vancomycin HCl 1 gm/ 500 mls @ 250 mls/hr 10/10/18 02:00 10/11/18 04:45 Vancomycin HCl 500 mg/ Sodium IV Infused Chloride Q12H STEPH Infusion Sodium Chloride 1,000 mls @ 100 mls/hr 10/11/18 08:00 10/11/18 08:17 Normal Saline 0.9% IV 100 mls/hr .Q10H STEPH Administration Insulin Aspart 2 - 10 unit 10/09/18 17:00 10/10/18 21:27 Novolog SUBQ 2 unit 0800,1200,1700,2100 STEPH Administration Protocol Lorazepam 1 mg 10/10/18 03:15 10/10/18 03:29 Ativan PO 1 mg Q6H PRN Administration Anxiety Metoprolol Tartrate 25 mg 10/09/18 21:00 10/10/18 21:28 Lopressor PO 25 mg BID STEPH Administration Morphine Sulfate 2 mg 10/11/18 07:49 10/11/18 08:21 Morphine IVP 2 mg Q2H PRN Administration Dyspnea Multivitamins/Minerals 1 tab 10/10/18 16:00 10/10/18 18:04 Theragran M PO 1 tab DAILYWM STEPH Administration Ondansetron HCl 4 mg 10/09/18 12:42 10/10/18 06:46 Zofran Odt TL 4 mg Q6HR PRN Administration Nausea / Vomiting Combivent Respimat 1 each 10/10/18 15:00 10/11/18 07:39 INH Not Given RTQID STEPH Polyethylene Glycol 17 gm 10/10/18 09:00 10/10/18 11:51 Miralax PO Not Given DAILY STEPH Prazosin HCl 1 mg 10/09/18 21:00 10/10/18 21:32 Minipress PO 1 mg QPM STEPH Administration Saccharomyces Boulardii 250 mg 10/10/18 17:00 10/10/18 17:32 Florastor PO 250 mg BIDWM STEPH Administration Sodium Chloride 10 ml 10/09/18 12:42 10/09/18 14:14 Normal Saline Flush 0.9% IVP 10 ml PRN PRN Administration NEEDED PER PROVIDER ORDERS Sodium Chloride 10 ml 10/09/18 17:00 10/11/18 00:40 Normal Saline Flush 0.9% IVP Not Given 0100,0900,1700 STEPH - Lab Result Fish Bone Diagrams: 10/11/18 07:59 10/11/18 07:59 - Additional Planning My Orders: My Active Orders 10/10/18 15:00 Patient Own Med [Patient Own Medication] 1 each INH RTQID 10/10/18 16:00 Multivitamin W/Minerals [Theragran M] 1 tab PO DAILYWM 10/10/18 17:00 Saccharomyces Boulardii [Florastor] 250 mg PO BIDWM 10/11/18 07:48 Arterial Blood Gases - RT [RC] .ONCE 10/11/18 07:49 Morphine Inj [Morphine] 2 mg IVP Q2H PRN 10/11/18 08:17 BNP - B-NATRIURETIC PEPTIDE [IAI] Stat LACTIC ACID, VENOUS [CHEM] Stat 10/11/18 08:30 INFLUENZA VIRUS A+B Stat 10/11/18 08:45 ABG - ARTERIAL BLOOD GAS [BG] Timed 10/11/18 09:00 Cholecalciferol [Vitamin D3] 1,000 unit PO DAILY Famotidine [Pepcid] 20 mg IVP BID Levofloxacin/D5W 750 mg/150 mL q24h levoFLOXacin 750 MG/150 ML [Levaquin 750 mg/150 ml] 750 mg in 150 ml IV Q24H Zinc Sulfate 220 mg PO DAILY 10/12/18 05:00 CMP [COMPREHENSIVE METABOLIC PANEL] [CHEM] DAILYLAB 10/13/18 05:00 CMP [COMPREHENSIVE METABOLIC PANEL] [CHEM] DAILYLAB Subjective - Subjective Patient Reports: Shortness of Breath Nursing Reports: Other (Pt had blood tinged sputum noted as he was being put on BIPAP mask.) Objective Vital Signs: Vital Signs - 24 hr 10/10/18 10/10/18 10/10/18 10:30 11:46 15:51 Temperature 37.0 C Heart Rate 111 H Heart Rate [ 87 Brachial] Heart Rate [ Monitoring electrodes] Respiratory 22 20 Rate Blood Pressure 186/68 H Blood Pressure 122/66 [Right Brachial artery] O2 Saturation 94 10/10/18 10/10/18 10/11/18 17:30 21:28 01:00 Temperature 36.7 C Heart Rate 87 Heart Rate [ 88 Brachial] Heart Rate [ Monitoring electrodes] Respiratory 16 20 Rate Blood Pressure 139/46 H Blood Pressure 158/64 H [Right Brachial artery] O2 Saturation 92 10/11/18 10/11/18 10/11/18 01:24 06:04 07:40 Temperature 36.7 C 36.7 C Heart Rate 77 94 Heart Rate [ 77 Brachial] Heart Rate [ Monitoring electrodes] Respiratory 20 20 28 H Rate Blood Pressure Blood Pressure 158/64 H [Right Brachial artery] O2 Saturation 91 L 91 L 10/11/18 10/11/18 07:51 08:02 Temperature 36.5 C Heart Rate 83 Heart Rate [ Brachial] Heart Rate [ 91 Monitoring electrodes] Respiratory 22 Rate Blood Pressure Blood Pressure 160/73 H [Right Brachial artery] O2 Saturation 80 L Oxygen O2 Source BIPAP I&O (Last 24 Hrs): Intake and Output Totals x24h 10/09/18 10/10/18 10/11/18 23:59 23:59 23:59 Intake Total 1350 3530 1370.618 Output Total 400 1250 400 Balance 950 2280 970.618 General: Alert, Moderate distress HEENT: Mucous membr. moist/pink, Other (Wearing a BIPAP mask) Neck: Supple, No JVD Neuro: Non Focal Cardiovascular: Regular rate, No murmurs Respiratory: Other ([place] R side) Abdomen: Soft Extremities: Other (R BKA, L toe ulcer unchanged) - Results Results: Laboratory Results WBC 8.7 x10^3/uL (4.8-10.8) 10/11/18 07:59 RBC 4.94 10^6/uL (4.70-6.10) 10/11/18 07:59 Hgb 14.2 g/dL (14.0-18.0) 10/11/18 07:59 Hct 43.9 % (42.0-52.0) 10/11/18 07:59 MCV 88.9 fL (80.0-94.0) 10/11/18 07:59 MCH 28.6 pg (27.0-31.0) 10/11/18 07:59 MCHC 32.2 g/dL (32.0-36.0) 10/11/18 07:59 RDW 16.0 % (12.0-15.0) H 10/11/18 07:59 Plt Count 164 10^3/uL (130-450) 10/11/18 07:59 MPV 8.5 fL (7.4-11.4) 10/11/18 07:59 Neut # (Auto) 7.3 10^3/uL (1.5-6.6) H 10/11/18 07:59 Lymph # (Auto) 0.8 10^3/uL (1.5-3.5) L 10/11/18 07:59 [place] # (Auto) 0.5 10^3/uL (0.0-1.0) 10/11/18 07:59 Eos # (Auto) 0.1 10^3/uL (0.0-0.7) 10/11/18 07:59 Baso # (Auto) 0.1 10^3/uL (0.0-0.1) 10/11/18 07:59 Absolute Nucleated RBC 0.00 x10^3/uL 10/11/18 07:59 Nucleated RBC % 0.0 /100WBC 10/11/18 07:59 ESR 26 mm/Hr (0-20) H 10/09/18 10:35 Anti-Xa Level 0.4 U/mL (-0.7) 10/11/18 07:59 Bld Gas Analysis Time 0738 10/11/18 07:30 Sample Site LEFT RADIAL 10/11/18 07:30 ABG pH 7.19 (7.35-7.45) L* 10/11/18 07:30 ABG pCO2 80 mmHg (34-45) H* 10/11/18 07:30 ABG pO2 108 mmHg (80-100) H 10/11/18 07:30 ABG HCO3 30.0 mmol/L (22.0-26.0) H 10/11/18 07:30 ABG Total CO2 32.4 MMOL/L (21.0-29.0) H 10/11/18 07:30 ABG O2 Saturation 97 % (94-98) 10/11/18 07:30 ABG Oximetry Spot Check 95 % 10/11/18 07:30 ABG Base Excess -0.7 mmol/L (-2.0-3.0) 10/11/18 07:30 Jin Test POSITIVE 10/11/18 07:30 Respiration Rate 28 b/min 10/11/18 07:30 O2 Delivery Device NON REBREATHER MASK 10/11/18 07:30 O2 Liters/Min 15.00 LPM 10/11/18 07:30 Sodium 137 mmol/L (135-145) 10/11/18 07:59 Potassium 4.9 mmol/L (3.5-5.0) 10/11/18 07:59 Chloride 96 mmol/L (101-111) L 10/11/18 07:59 Carbon Dioxide 32 mmol/L (21-32) 10/11/18 07:59 Anion Gap 9.0 (6-13) 10/11/18 07:59 BUN 9 mg/dL (6-20) 10/11/18 07:59 Creatinine 1.0 mg/dL (0.6-1.2) 10/11/18 07:59 Estimated GFR (MDRD) 72 (>89) L 10/11/18 07:59 Glucose 173 mg/dL (70-100) H 10/11/18 07:59 POC Whole Bld Glucose 177 mg/dL (70 - 100) H 10/11/18 08:15 Glycated Hemoglobin 6.3 % (4.6-6.2) H 10/09/18 10:27 Estim Average Glucose 134 (70-100) H 10/09/18 10:27 Calcium 8.5 mg/dL (8.5-10.3) 10/11/18 07:59 Phosphorus 3.6 mg/dL (2.5-4.6) 10/10/18 07:12 Total Bilirubin 0.9 mg/dL (0.2-1.0) 10/11/18 07:59 AST 21 IU/L (10-42) 10/11/18 07:59 ALT 20 IU/L (10-60) 10/11/18 07:59 Alkaline Phosphatase 73 IU/L (42-121) 10/11/18 07:59 C-Reactive Protein < 1.0 mg/dL (0-1.0) 10/09/18 10:35 Total Protein 6.0 g/dL (6.7-8.2) L 10/11/18 07:59 Albumin 2.6 g/dL (3.2-5.5) L 10/11/18 07:59 Globulin 3.4 g/dL (2.1-4.2) 10/11/18 07:59 Albumin/Globulin Ratio 0.8 (1.0-2.2) L 10/11/18 07:59 Lipase 42 U/L (22-51) 10/09/18 10:35
[2018-10-11] MEDS ORDERED: CHOLECALCIFEROL 1,000 UNIT TABLET PO SCH (09:00)
[2018-10-11] MEDS ORDERED: INSULIN REGULAR HUMAN 100 UNIT/1 ML 10 ML MDV SUBQ SCH (09:00)
[2018-10-11] MEDS ORDERED: SODIUM CHLORIDE FLUSH 0.9% 10 ML SYRINGE IVP SCH (09:00)
[2018-10-11] MEDS: levoFLOXacin 750 MG/150 ML 750 MG/150 ML BAG IV SCH (09:12)
[2018-10-11 09:18] LABS: PHOSPHORUS 4.4 mg/dL (2.5-4.6)
[2018-10-11] MEDS: SODIUM CHLORIDE FLUSH 0.9% 10 ML SYRINGE IVP PRN (09:18)
[2018-10-11] MEDS ORDERED: LIDOCAINE 2% URO-JET 5 ML SYRINGE UR ONE (09:20)
[2018-10-11 09:31] LABS: ABG BASE EXCESS 1.9 mmol/L (-2.0-3.0); ABG PCO2 56 mmHg (34-45); ABG PH 7.34 (7.35-7.45); ABG PO2 60 mmHg (80-100); ABG TCO2 30.7 MMOL/L (21.0-29.0)
[2018-10-11 09:32] LABS: ABG OXYGEN SATURATION 92 % (94-98); ALLEN TEST POSITIVE
[2018-10-11] MEDS: SACCHAROMYCES BOULARDII 250 MG CAPSULE PO SCH ×2 (09:43→17:20)
[2018-10-11] MEDS: FAMOTIDINE 20 MG/2 ML VIAL IVP SCH ×2 (12:24→21:09)
[2018-10-11] MEDS: INSULIN REGULAR HUMAN 100 UNIT/1 ML 10 ML MDV SUBQ SCH ×2 (12:45→18:03)
[2018-10-11] MEDS: METOPROLOL TARTRATE 25 MG TABLET PO SCH ×2 (12:50→21:09)
[2018-10-11] MEDS: ZINC SULFATE 220 MG CAPSULE PO SCH (12:50)
[2018-10-11] MEDS: POLYETHYLENE GLYCOL 3350 17 GM PACKET PO SCH (12:51)
[2018-10-11 13:52] LABS: VANCOMYCIN,RANDOM 26.5 ug/mL
[2018-10-11] MEDS: ONDANSETRON ODT 4 MG TABLET TL PRN (14:38)
[2018-10-11] MEDS: guaiFENesin 600 MG TABLET PO SCH (21:09)
[2018-10-11] MEDS: PRAZOSIN 1 MG CAPSULE PO SCH (21:09)
[2018-10-11] MEDS: INSULIN ASPART 300 UNIT/3 ML PEN SUBQ SCH (21:30)
[2018-10-11 22:33] LABS: ABG HCO3 29.5 mmol/L (22.0-26.0); ABG OXYGEN SATURATION 93 % (94-98); ABG PCO2 48 mmHg (34-45); ABG PH 7.41 (7.35-7.45); ABG PO2 62 mmHg (80-100)
[2018-10-11 22:34] LABS: ALLEN TEST POSITIVE
[2018-10-11] MEDS ORDERED: LORazepam 2 MG/ML VIAL IVP STA (23:25)
[2018-10-12] MEDS ORDERED: HALOPERIDOL 5 MG/ML VIAL IVP PRN (04:37)
[2018-10-12] MEDS ORDERED: LORazepam 2 MG/ML VIAL IVP STA (04:37)
[2018-10-12] MEDS ORDERED: HALOPERIDOL 5 MG/ML VIAL ONE (04:42)
[2018-10-12] MEDS ORDERED: LORazepam 2 MG/ML VIAL ONE (04:42)
[2018-10-12 04:54] LABS: BASOPHILS % (AUTO) 0.3 %; EOSINOPHILS # (AUTO) 0.1 10^3/uL (0.0-0.7); EOSINOPHILS % (AUTO) 0.9 %; HGB - HEMOGLOBIN 12.8 g/dL (14.0-18.0); LYMPHOCYTES # (AUTO) 1.1 10^3/uL (1.5-3.5); LYMPHOCYTES % (AUTO) 10.7 %; MEAN CORPUSCULAR HEMOGLOBIN 28.5 pg (27.0-31.0); MEAN CORPUSCULAR HGB CONC 31.9 g/dL (32.0-36.0); MEAN CORPUSCULAR VOLUME 89.3 fL (80.0-94.0); MEAN PLATELET VOLUME 9.2 fL (7.4-11.4); MONOCYTES % (AUTO) 9.8 %; NEUTROPHILS # (AUTO) 7.7 10^3/uL (1.5-6.6); NEUTROPHILS % (AUTO) 78.3 %; PLT - PLATELET COUNT 177 10^3/uL (130-450); RED BLOOD COUNT 4.47 10^6/uL (4.70-6.10); RED CELL DISTRIBUTION WIDTH 16.1 % (12.0-15.0); WHITE BLOOD COUNT 9.9 x10^3/uL (4.8-10.8)
[2018-10-12 04:58] LABS: ALBUMIN 2.4 g/dL (3.2-5.5); ALBUMIN/GLOBULIN RATIO 0.7 (1.0-2.2); BILIRUBIN,TOTAL 1.2 mg/dL (0.2-1.0); CALCIUM 8.4 mg/dL (8.5-10.3); CREATININE 1.4 mg/dL (0.6-1.2); PHOSPHORUS 3.4 mg/dL (2.5-4.6); TOTAL PROTEIN 5.9 g/dL (6.7-8.2)
[2018-10-12] MEDS: PIPERACILLIN/TAZOBACTAM 4.5 GM in SODIUM CHLORIDE 0.9% MINIBAG 100 ML IV SCH ×3 (05:56→18:00)
[2018-10-12] MEDS: SODIUM CHLORIDE 0.9% 1,000 ML IV SCH (07:00)
[2018-10-12] MEDS: IPRATROPIUM/ALBUTEROL 3 ML NEB INH PRN (07:14)
[2018-10-12] MEDS: INSULIN ASPART 300 UNIT/3 ML PEN SUBQ SCH ×4 (08:11→21:27)
--- NOTE | 2018-10-12 08:34 | XRAY Report ---
Reason: F/U L sided interstitial lung disease Procedure Date: 10/12/2018 Accession Number: [id number] / [id number] Procedure: XR - Chest 1 View X-Ray CPT Code: 48469 FULL RESULT: EXAM: CHEST RADIOGRAPHY EXAM DATE: 10/12/2018 08:13 AM. CLINICAL HISTORY: F/U L sided interstitial lung disease. COMPARISON: 10/11/2018 TECHNIQUE: 1 view. FINDINGS: Lungs/Pleura: Asymmetric increased interstitial markings left greater than right, progressed since the preceding day. No pleural effusion or pneumothorax. Findings may be on the basis of asymmetric fluid overload/congestive heart failure or infection, less likely inhalational exposure, drug reaction, etc. Mediastinum: Within exam limitations, the cardiomediastinal contour is normal. Other: Foreign material left shoulder. IMPRESSION: Worsening interstitial changes left greater than right, consider infection versus fluid overload/failure. RADIA
--- NOTE | 2018-10-12 08:54 | PROVIDER PROGRESS NOTE ---
Assessment/Plan - Problem List (1) Acute respiratory failure with hypoxia and hypercapnia Assessment/Plan: The patient has no increase in WBC or fever. The Influenza A and B swabs were neg. Today's CXR was read as increasing iterstitial infiltrate, consider volume overload. His weight has increased by 15 kg since admission and he is approx 6L (+) in fluid balance. The Echo showed preserved LVEF with Diastolic dysfunction present, and moderate as well as moderate MS. His creat saurabh, rather than stayed notrmal, suggesting a poor head of perfusion pressure to the glomerulus. These findings taken together suggest pulmonary edema rather than HCAP as the cause of his respiratory problem. Will stop in iv saline at 100 cc/hr. Start iv D5 at 40 cc/hr, since he is a Diabetic. Will start iv Lasix 40 mg iv bid. Continue daily weights. Continue Morphine and will add NTP, for preload reduction. Haldol will be replaced with Morphine. Will follow his BNP. Check troponins. Continue BIPAP, wean down as tolerated. (2) HCAP (healthcare-associated pneumonia) Assessment/Plan: See #1. Will continue the iv antibiotics for HCAP, emiprically. Follow CXR daily, and if he improveds clinically with diuresis quickly, then will stop antibiotics and rule out HCAP. (3) Agitation requiring sedation protocol Assessment/Plan: See #1. Haldol will be replaced with Morphine. He also refused lab draws. (4) Aortic stenosis, moderate Assessment/Plan: This is a new Dx, found by Echo done yesterday. He therefore has a fixed afterload. Will be careful using pure afterload reducers, which will cause drop in BP without benefiting the LV by afterload reducing. (5) Mitral stenosis Assessment/Plan: This is a new Dx, found by Echo done yesterday. He is therefore very sensitive to volume overload, and will develop pulmonary edema, as I believe he is demonstrating now. Plan as in #1. (6) Ischemic leg ulcer Assessment/Plan: Continue present meds. I will resume the heparin drip, which was stopped due to blood tinged sputum yesterday. Will restart without a bolus, therefore. (7) Chronic osteomyelitis involving ankle and foot Qualifiers: Laterality: left Qualified Code(s): M86.672 - Other chronic osteomyelitis, left ankle and foot Assessment/Plan: The MRI for osteo is still pending, to be done today. Continue iv antibiotics. (8) Diabetes mellitus type 2 with complications, uncontrolled Assessment/Plan: Patient on a carb-controlled diet and ss Insulin (9) HTN (hypertension) Qualifiers: Hypertension type: essential hypertension Qualified Code(s): I10 - Essential (primary) hypertension Assessment/Plan: Controlled on present meds (10) Noncompliance with diabetes treatment Assessment/Plan: Hx of this (11) Hx of right BKA Assessment/Plan: Stable - Current Meds Current Meds: Current Medications Generic Name Dose Route Start Last Admin Trade Name Freq PRN Reason Stop Dose Admin Albuterol/Ipratropium 3 ml 10/10/18 02:37 10/12/18 07:14 Duoneb INH 3 ml Q4HR PRN Administration Wheezing Famotidine 20 mg 10/11/18 09:00 10/11/18 21:09 Pepcid IVP 20 mg BID STEPH Administration Guaifenesin 600 mg 10/11/18 21:00 10/11/18 21:09 Mucinex PO 600 mg BID STEPH Administration Haloperidol 2.5 mg 10/12/18 04:37 10/12/18 05:20 Haldol Inj IVP 2.5 mg Q6H PRN Administration Agitation Piperacillin Sod/Tazobactam 100 mls @ 200 mls/hr 10/09/18 18:00 10/12/18 06:26 Sod 4.5 gm/ Sodium Chloride IV Infused Q6H STEPH Infusion Levofloxacin 750 mg in 150 mls @ 100 mls/hr 10/11/18 09:00 10/11/18 10:42 Levaquin 750 Mg/150 Ml IV Infused Q24H STEPH Infusion Vancomycin HCl 1 gm/ 500 mls @ 250 mls/hr 10/11/18 20:00 10/11/18 22:30 Vancomycin HCl 500 mg/ Sodium IV Infused Chloride Q18H STEPH Infusion Insulin Aspart 1 - 9 unit 10/11/18 21:00 10/12/18 08:11 Novolog SUBQ 1 unit 0800,1200,1700,2100 STEPH Administration Protocol Lorazepam 1 mg 10/10/18 03:15 10/10/18 03:29 Ativan PO 1 mg Q6H PRN Administration Anxiety Metoprolol Tartrate 25 mg 10/09/18 21:00 10/11/18 21:09 Lopressor PO 25 mg BID STEPH Administration Morphine Sulfate 2 mg 10/11/18 07:49 10/11/18 08:21 Morphine IVP 2 mg Q2H PRN Administration Dyspnea Combivent Respimat 1 each 10/10/18 15:00 10/12/18 06:35 INH Not Given RTQID STEPH Polyethylene Glycol 17 gm 10/10/18 09:00 10/11/18 12:51 Miralax PO Not Given DAILY STEPH Prazosin HCl 1 mg 10/09/18 21:00 10/11/18 21:09 Minipress PO 1 mg QPM STEPH Administration Saccharomyces Boulardii 250 mg 10/10/18 17:00 10/11/18 17:20 Florastor PO 250 mg BIDWM STEPH Administration Sodium Chloride 10 ml 10/09/18 12:42 10/11/18 09:18 Normal Saline Flush 0.9% IVP 10 ml PRN PRN Administration NEEDED PER PROVIDER ORDERS Sodium Chloride 10 ml 10/09/18 17:00 10/11/18 23:54 Normal Saline Flush 0.9% IVP 10 ml 0100,0900,1700 STEPH Administration Zinc Sulfate 220 mg 10/11/18 09:00 10/11/18 12:50 PO 220 mg DAILY STEPH Administration - Lab Result Fish Bone Diagrams: 10/12/18 04:15 10/12/18 04:15 - Additional Planning My Orders: My Active Orders 10/11/18 07:49 Morphine Inj [Morphine] 2 mg IVP Q2H PRN 10/11/18 09:00 Famotidine [Pepcid] 20 mg IVP BID Zinc Sulfate 220 mg PO DAILY levoFLOXacin 750 MG/150 ML [Levaquin 750 mg/150 ml] 750 mg in 150 ml IV Q24H 10/11/18 09:20 Rascon Insertion [RC] QSHIFT 10/11/18 11:36 Echo Transthoracic Complete [ECHO] Routine 10/11/18 21:00 Insulin Aspart [NovoLOG] 1 - 9 unit SUBQ 0800,1200,1700,2100 10/11/18 Lunch Dysphagia Puree Diet [DIET] 10/12/18 04:00 BNP - B-NATRIURETIC PEPTIDE [IAI] Urgent 10/12/18 04:24 ABG [Arterial Blood Gases - RT] [RC] .ONCE 10/12/18 04:25 ABG - ARTERIAL BLOOD GAS [BG] Stat 10/12/18 05:00 ABG - ARTERIAL BLOOD GAS [BG] DAILYLAB 10/12/18 09:00 Dextrose 5% [D5w] 1,000 ml IV 40 mls/hr FUROSEMIDE INJ 40mg VIAL [LASIX INJ 40 mg VIAL] 40 mg IVP BIDDIURETIC 10/12/18 11:00 Ipratropium/Albuterol [Duoneb] 3 ml INH RTQID 10/13/18 05:00 ABG - ARTERIAL BLOOD GAS [BG] DAILYLAB CMP [COMPREHENSIVE METABOLIC PANEL] [CHEM] DAILYLAB 10/13/18 07:30 VANCOMYCIN TROUGH [CHEM] Timed 10/13/18 09:00 Chest 1 View X-Ray [XR] DAILY 10/14/18 09:00 Chest 1 View X-Ray [XR] DAILY 10/15/18 09:00 Chest 1 View X-Ray [XR] DAILY Subjective - Subjective Patient Reports: Feeling Better Nursing Reports: Other (BIPAP was decreased to ventimask today, with lower FIO2 needed.) Objective Vital Signs: Vital Signs - 24 hr 10/11/18 10/11/18 10/11/18 09:00 10:08 10:27 Temperature Heart Rate 89 71 Heart Rate [ 76 Monitoring electrodes] Respiratory 17 24 Rate Blood Pressure Blood Pressure 175/66 H [Right Brachial artery] O2 Saturation 94 10/11/18 10/11/18 10/11/18 11:00 12:14 12:17 Temperature 36.3 C L Heart Rate 73 Heart Rate [ 80 71 Monitoring electrodes] Respiratory 16 19 Rate Blood Pressure Blood Pressure 149/79 H 161/82 H [Right Brachial artery] O2 Saturation 97 96 10/11/18 10/11/18 10/11/18 12:50 13:00 14:41 Temperature Heart Rate 72 Heart Rate [ 81 Monitoring electrodes] Respiratory 20 Rate Blood Pressure 161/82 H Blood Pressure 144/69 H [Right Brachial artery] O2 Saturation 96 10/11/18 10/11/18 10/11/18 14:52 15:00 16:08 Temperature 36.3 C L Heart Rate 71 Heart Rate [ 60 71 Monitoring electrodes] Respiratory 24 16 16 Rate Blood Pressure Blood Pressure 160/70 H 157/73 H [Right Brachial artery] O2 Saturation 95 95 05/01/2210/11/18 10/11/18 16:27 17:00 18:16 Temperature Heart Rate 72 Heart Rate [ 84 78 Monitoring electrodes] Respiratory 17 23 Rate Blood Pressure Blood Pressure 160/53 H 167/67 H [Right Brachial artery] O2 Saturation 93 92 10/11/18 10/11/18 10/11/18 19:00 20:00 21:00 Temperature 37.0 C Heart Rate Heart Rate [ 83 80 81 Monitoring electrodes] Respiratory 22 19 20 Rate Blood Pressure Blood Pressure 149/63 H 144/64 H 160/60 H [Right Brachial artery] O2 Saturation 94 93 93 10/11/18 10/11/18 10/11/18 21:09 22:58 23:00 Temperature 36.7 C Heart Rate 96 Heart Rate [ 77 Monitoring electrodes] Respiratory 21 Rate Blood Pressure 160/60 H Blood Pressure 126/63 [Right Brachial artery] O2 Saturation 93 10/12/18 10/12/18 10/12/18 01:00 03:00 03:33 Temperature Heart Rate 82 Heart Rate [ 78 78 Monitoring electrodes] Respiratory 23 21 Rate Blood Pressure Blood Pressure 130/56 L 129/66 [Right Brachial artery] O2 Saturation 94 93 10/12/18 10/12/18 10/12/18 04:00 04:50 05:00 Temperature 36.0 C L Heart Rate 119 H Heart Rate [ 87 114 H Monitoring electrodes] Respiratory 22 24 Rate Blood Pressure Blood Pressure 140/53 H 116/102 H [Right Brachial artery] O2 Saturation 94 100 10/12/18 10/12/18 10/12/18 05:30 06:00 07:00 Temperature Heart Rate Heart Rate [ 110 H 100 97 Monitoring electrodes] Respiratory 25 H 22 23 Rate Blood Pressure Blood Pressure 168/71 H 136/59 H 177/66 H [Right Brachial artery] O2 Saturation 97 94 99 10/12/18 10/12/18 10/12/18 07:14 07:20 07:25 Temperature 36 C L Heart Rate 106 H 100 97 Heart Rate [ Monitoring electrodes] Respiratory 24 23 Rate Blood Pressure Blood Pressure [Right Brachial artery] O2 Saturation 99 Oxygen O2 Source BIPAP I&O (Last 24 Hrs): Intake and Output Totals x24h 10/10/18 10/11/18 10/12/18 23:59 23:59 23:59 Intake Total 3530 4400.718 1450 Output Total 1250 1140 425 Balance 2280 3260.718 1025 General: Alert, Oriented x3, Other (Disheveled) HEENT: Mucous membr. moist/pink, Other (Wearing an oximizer currently) Neck: Supple Neuro: Non Focal Cardiovascular: No murmurs Respiratory: Other (L rales) Abdomen: Soft, Other (Obese with pannus) Extremities: Other (R BKA, L has 1+edema and ulcer of L great toe) - Results Results: Laboratory Results WBC 9.9 x10^3/uL (4.8-10.8) 10/12/18 04:15 RBC 4.47 10^6/uL (4.70-6.10) L 10/12/18 04:15 Hgb 12.8 g/dL (14.0-18.0) L 10/12/18 04:15 Hct 39.9 % (42.0-52.0) L 10/12/18 04:15 MCV 89.3 fL (80.0-94.0) 10/12/18 04:15 MCH 28.5 pg (27.0-31.0) 10/12/18 04:15 MCHC 31.9 g/dL (32.0-36.0) L 10/12/18 04:15 RDW 16.1 % (12.0-15.0) H 10/12/18 04:15 Plt Count 177 10^3/uL (130-450) 10/12/18 04:15 MPV 9.2 fL (7.4-11.4) 10/12/18 04:15 Neut # (Auto) 7.7 10^3/uL (1.5-6.6) H 10/12/18 04:15 Lymph # (Auto) 1.1 10^3/uL (1.5-3.5) L 10/12/18 04:15 [place] # (Auto) 1.0 10^3/uL (0.0-1.0) 10/12/18 04:15 Eos # (Auto) 0.1 10^3/uL (0.0-0.7) 10/12/18 04:15 Baso # (Auto) 0.0 10^3/uL (0.0-0.1) 10/12/18 04:15 Absolute Nucleated RBC 0.00 x10^3/uL 10/12/18 04:15 Nucleated RBC % 0.0 /100WBC 10/12/18 04:15 ESR 26 mm/Hr (0-20) H 10/09/18 10:35 Anti-Xa Level 0.4 U/mL (-0.7) 10/11/18 07:59 Bld Gas Analysis Time 2233 10/11/18 22:20 Sample Site RIGHT RADIAL 10/11/18 22:20 ABG pH 7.41 (7.35-7.45) 10/11/18 22:20 ABG pCO2 48 mmHg (34-45) H 10/11/18 22:20 ABG pO2 62 mmHg (80-100) L 10/11/18 22:20 ABG HCO3 29.5 mmol/L (22.0-26.0) H 10/11/18 22:20 ABG Total CO2 31.0 MMOL/L (21.0-29.0) H 10/11/18 22:20 ABG O2 Saturation 93 % (94-98) L 10/11/18 22:20 ABG Oximetry Spot Check 95 % 10/11/18 07:30 ABG Base Excess 4.0 mmol/L (-2.0-3.0) H 10/11/18 22:20 Jin Test POSITIVE 10/11/18 22:20 Respiration Rate 16 b/min 10/11/18 22:20 O2 Delivery Device BiPAP 10/11/18 22:20 O2 Liters/Min 15.00 LPM 10/11/18 07:30 Vent Mode SYNCHRONOUS/TIMES 10/11/18 22:20 FiO2 75.00 10/11/18 22:20 EPAP 5 cmH2O 10/11/18 22:20 IPAP 12 cmH2O 10/11/18 22:20 Sodium 138 mmol/L (135-145) 10/12/18 04:15 Potassium 4.5 mmol/L (3.5-5.0) 10/12/18 04:15 Chloride 101 mmol/L (101-111) 10/12/18 04:15 Carbon Dioxide 32 mmol/L (21-32) 10/12/18 04:15 Anion Gap 5.0 (6-13) L 10/12/18 04:15 BUN 19 mg/dL (6-20) 10/12/18 04:15 Creatinine 1.4 mg/dL (0.6-1.2) H 10/12/18 04:15 Estimated GFR (MDRD) 49 (>89) L 10/12/18 04:15 Glucose 142 mg/dL (70-100) H 10/12/18 04:15 POC Whole Bld Glucose 152 mg/dL (70 - 100) H 10/12/18 08:05 Glycated Hemoglobin 6.3 % (4.6-6.2) H 10/09/18 10:27 Estim Average Glucose 134 (70-100) H 10/09/18 10:27 Lactic Acid 0.7 mmol/L (0.5-2.2) 10/11/18 08:17 Calcium 8.4 mg/dL (8.5-10.3) L 10/12/18 04:15 Phosphorus 3.4 mg/dL (2.5-4.6) 10/12/18 04:15 Magnesium 2.0 mg/dL (1.7-2.8) 10/12/18 04:15 Total Bilirubin 1.2 mg/dL (0.2-1.0) H 10/12/18 04:15 AST 18 IU/L (10-42) 10/12/18 04:15 ALT 18 IU/L (10-60) 10/12/18 04:15 Alkaline Phosphatase 60 IU/L (42-121) 10/12/18 04:15 C-Reactive Protein < 1.0 mg/dL (0-1.0) 10/09/18 10:35 B-Natriuretic Peptide 422 pg/mL (5-100) H 10/11/18 08:17 Total Protein 5.9 g/dL (6.7-8.2) L 10/12/18 04:15 Albumin 2.4 g/dL (3.2-5.5) L 10/12/18 04:15 Globulin 3.5 g/dL (2.1-4.2) 10/12/18 04:15 Albumin/Globulin Ratio 0.7 (1.0-2.2) L 10/12/18 04:15 Lipase 42 U/L (22-51) 10/09/18 10:35 Nasal Screen MRSA (PCR) NEGATIVE (NEGATIVE) 10/11/18 09:00 Last Dose Date 10/11/18 10/11/18 13:22 Last Dose Time 0445 10/11/18 13:22 Random Vancomycin 26.5 ug/mL 10/11/18 13:22 Influenza A (Rapid) Negative (Negative) 10/11/18 09:00 Influenza B (Rapid) Negative (Negative) 10/11/18 09:00
[2018-10-12] MEDS: DEXTROSE 5% 1,000 ML IV SCH (09:00)
[2018-10-12] MEDS: FAMOTIDINE 20 MG/2 ML VIAL IVP SCH ×2 (09:09→21:26)
[2018-10-12] MEDS: SODIUM CHLORIDE FLUSH 0.9% 10 ML SYRINGE IVP PRN (09:11)
[2018-10-12] MEDS: FUROSEMIDE 40 MG/4 ML VIAL IVP SCH ×2 (09:11→14:15)
[2018-10-12] MEDS: levoFLOXacin 750 MG/150 ML 750 MG/150 ML BAG IV SCH (09:30)
[2018-10-12] MEDS: POLYETHYLENE GLYCOL 3350 17 GM PACKET PO SCH (10:41)
[2018-10-12] MEDS: NITROGLYCERIN 2% PASTE TOP SCH ×2 (10:43→17:20)
[2018-10-12] MEDS: SACCHAROMYCES BOULARDII 250 MG CAPSULE PO SCH ×2 (10:44→17:44)
[2018-10-12] MEDS: guaiFENesin 600 MG TABLET PO SCH ×2 (10:45→21:26)
[2018-10-12] MEDS: METOPROLOL TARTRATE 25 MG TABLET PO SCH ×2 (10:45→21:26)
[2018-10-12] MEDS: SODIUM CHLORIDE FLUSH 0.9% 10 ML SYRINGE IVP SCH ×3 (10:46→21:30)
[2018-10-12] MEDS: ZINC SULFATE 220 MG CAPSULE PO SCH (10:46)
[2018-10-12] MEDS: IPRATROPIUM/ALBUTEROL 3 ML NEB INH SCH ×3 (11:53→20:25)
[2018-10-12] MEDS: VANCOMYCIN INJ 1 GM, VANCOMYCIN INJ 500 MG in SODIUM CHLORIDE 0.9% 500 ML IV SCH (14:15)
[2018-10-12] MEDS: MORPHINE 4 MG/ML VIAL IVP PRN ×2 (14:15→17:30)
[2018-10-12 14:19] LABS: ABG HCO3 29.7 mmol/L (22.0-26.0); ABG PCO2 50 mmHg (34-45); ABG PH 7.39 (7.35-7.45); ABG TCO2 31.2 MMOL/L (21.0-29.0)
[2018-10-12 14:20] LABS: ABG BASE EXCESS 3.8 mmol/L (-2.0-3.0); ALLEN TEST POSITIVE
[2018-10-12 14:22] LABS: ABG OXYGEN SATURATION 86 % (94-98); ABG PO2 47 mmHg (80-100)
[2018-10-12] MEDS: PRAZOSIN 1 MG CAPSULE PO SCH (21:30)
[2018-10-13] MEDS: PIPERACILLIN/TAZOBACTAM 4.5 GM in SODIUM CHLORIDE 0.9% MINIBAG 100 ML IV SCH ×3 (00:13→12:29)
[2018-10-13] MEDS: NITROGLYCERIN 2% PASTE TOP SCH ×3 (00:33→18:07)
[2018-10-13] MEDS: MORPHINE 4 MG/ML VIAL IVP PRN ×2 (01:49→06:25)
[2018-10-13] MEDS: SODIUM CHLORIDE FLUSH 0.9% 10 ML SYRINGE IVP SCH ×4 (01:51→22:04)
[2018-10-13] MEDS: FUROSEMIDE 40 MG/4 ML VIAL IVP SCH ×3 (06:15→22:03)
[2018-10-13] MEDS: SODIUM CHLORIDE FLUSH 0.9% 10 ML SYRINGE IVP PRN ×5 (06:16→14:07)
--- NOTE | 2018-10-13 06:28 | XRAY Report ---
Reason: F/U L sided interstitial lung disease Procedure Date: 10/13/2018 Accession Number: [id number] / [id number] Procedure: XR - Chest 1 View X-Ray CPT Code: 10366 FULL RESULT: EXAM: CHEST RADIOGRAPHY EXAM DATE: 10/13/2018 06:09 AM. CLINICAL HISTORY: Follow-up left-sided interstitial lung disease. COMPARISON: CHEST 1 VIEW 10/12/2018 7:51 AM. TECHNIQUE: 1 view. FINDINGS: Lungs/Pleura: Stable moderate bilateral predominantly interstitial airspace opacities with some nodular component questioned. No gross pneumothorax. Suspect small effusions. Mediastinum: Within exam limitations, the cardiomediastinal contour is normal. Other: None. IMPRESSION: Stable moderate bilateral predominantly interstitial airspace opacities. While this could reflect mostly pulmonary edema, subtle nodular component is questioned and there could be lymphangitic carcinomatosis or atypical interstitial pneumonia. Consider CT for further evaluation. RADIA
[2018-10-13 07:49] LABS: VANCOMYCIN,TROUGH 22.1 ug/mL (10.0-20.0)
[2018-10-13 07:52] LABS: ALBUMIN 2.4 g/dL (3.2-5.5); ALBUMIN/GLOBULIN RATIO 0.6 (1.0-2.2); BILIRUBIN,TOTAL 0.9 mg/dL (0.2-1.0); CALCIUM 8.4 mg/dL (8.5-10.3); CREATININE 1.6 mg/dL (0.6-1.2); MAGNESIUM 1.9 mg/dL (1.7-2.8); PHOSPHORUS 4.4 mg/dL (2.5-4.6); TOTAL PROTEIN 6.1 g/dL (6.7-8.2)
[2018-10-13] MEDS: IPRATROPIUM/ALBUTEROL 3 ML NEB INH SCH ×4 (08:54→21:13)
[2018-10-13] MEDS: INSULIN ASPART 300 UNIT/3 ML PEN SUBQ SCH ×4 (10:17→20:32)
[2018-10-13] MEDS: HEPARIN 25000UNITS/500ML (D5W) 25,000 UNIT/500 ML BAG IV SCH (10:34)
[2018-10-13] MEDS: levoFLOXacin 750 MG/150 ML 750 MG/150 ML BAG IV SCH (10:57)
[2018-10-13] MEDS: FAMOTIDINE 20 MG/2 ML VIAL IVP SCH ×2 (10:59→20:33)
[2018-10-13] MEDS: guaiFENesin 600 MG TABLET PO SCH ×2 (11:04→20:32)
[2018-10-13] MEDS: ZINC SULFATE 220 MG CAPSULE PO SCH (11:04)
[2018-10-13] MEDS: SACCHAROMYCES BOULARDII 250 MG CAPSULE PO SCH ×2 (11:04→18:10)
[2018-10-13] MEDS: METOPROLOL TARTRATE 25 MG TABLET PO SCH ×2 (11:04→20:32)
[2018-10-13] MEDS: POLYETHYLENE GLYCOL 3350 17 GM PACKET PO SCH (11:05)
[2018-10-13 11:26] LABS: ABG PH 7.37 (7.35-7.45)
[2018-10-13 11:27] LABS: ABG BASE EXCESS 8.4 mmol/L (-2.0-3.0); ABG OXYGEN SATURATION 94 % (94-98); ABG PO2 67 mmHg (80-100); ALLEN TEST POSITIVE
[2018-10-13 11:30] LABS: ABG PCO2 64 mmHg (34-45)
[2018-10-13] MEDS: DEXTROSE 5% 1,000 ML IV SCH (12:51)
[2018-10-13] MEDS: VANCOMYCIN INJ 1 GM, VANCOMYCIN INJ 500 MG in SODIUM CHLORIDE 0.9% 500 ML IV SCH (14:07)
[2018-10-13] MEDS: PIPERACILLIN/TAZOBACTAM 3.375 GM in SODIUM CHLORIDE 0.9% MINIBAG 100 ML IV SCH (16:55)
--- NOTE | 2018-10-13 18:23 | PROVIDER PROGRESS NOTE ---
Assessment/Plan - Problem List (1) Acute respiratory failure with hypoxia and hypercapnia Assessment/Plan: He was again hypoxic thuis a.m. and refused BIPAP, tolerated ventimask. I discussed the possibility of ventilator, explained that it would be done with sedation. He agreed to be intubated and in vent if needed. also he told his RN that he does not want comfort measures only, but wants aggressive medical care. (2) HCAP (healthcare-associated pneumonia) Assessment/Plan: Continue with IV antibiotics, broad-spectrum because of extensive pneumonia. Continue with Mucinex. If he tolerates it, Acapella will be ordered for pulmonary toilet (3) Agitation requiring sedation protocol Assessment/Plan: This appears to be more his personality and that agitation from sundowning. Morphine is planned for any associated pain or dyspnea (4) Aortic stenosis, moderate Assessment/Plan: As per echo done this admission (5) Mitral stenosis Assessment/Plan: As per echo done this admission (6) Ischemic leg ulcer Assessment/Plan: Continue IV antibiotics and wound care and orthopedics is following along for e ventual debridement possibly (7) Chronic osteomyelitis involving ankle and foot Qualifiers: Laterality: left Qualified Code(s): M86.672 - Other chronic osteomyelitis, left ankle and foot Assessment/Plan: As in #6 (8) Diabetes mellitus type 2 with complications, uncontrolled Assessment/Plan: Continue diabetic diet, pured, Insulin coverage and sliding scale (9) HTN (hypertension) Qualifiers: Hypertension type: essential hypertension Qualified Code(s): I10 - Essential (primary) hypertension Assessment/Plan: Controlled on current meds (10) Noncompliance with diabetes treatment Assessment/Plan: As per history, he had not seen a doctor in 3 years. (11) Hx of right BKA Assessment/Plan: As per history, stable. - Current Meds Current Meds: Current Medications Generic Name Dose Route Start Last Admin Trade Name Freq PRN Reason Stop Dose Admin Albuterol/Ipratropium 3 ml 10/10/18 02:37 10/12/18 07:14 Duoneb INH 3 ml Q4HR PRN Administration Wheezing Albuterol/Ipratropium 3 ml 10/12/18 11:00 10/13/18 17:29 Duoneb INH 3 ml RTQID STEPH Administration Famotidine 20 mg 10/11/18 09:00 10/13/18 10:59 Pepcid IVP 20 mg BID STEPH Administration Furosemide 40 mg 10/13/18 14:00 10/13/18 14:07 Lasix Inj 40 Mg Vial IVP 40 mg TID STEPH Administration Guaifenesin 600 mg 10/11/18 21:00 10/13/18 11:04 Mucinex PO 600 mg BID STEPH Administration Levofloxacin 750 mg in 150 mls @ 100 mls/hr 10/11/18 09:00 10/13/18 12:27 Levaquin 750 Mg/150 Ml IV Infused Q24H STEPH Infusion Dextrose 1,000 mls @ 40 mls/hr 10/12/18 09:00 10/13/18 15:46 D5w IV 40 mls/hr .Q25H STEPH Infusion Heparin Sodium/Dextrose 25,000 unit in 500 mls @ 27.36 mls/hr 10/13/18 09:00 10/13/18 15:45 IV 12 unit/kg/hr .[id number] STEPH 27.36 mls/hr Titration Protocol 12 UNIT/KG/HR Vancomycin HCl 1 gm/ 500 mls @ 250 mls/hr 10/13/18 14:00 10/13/18 14:07 Vancomycin HCl 500 mg/ Sodium IV 250 mls/hr Chloride Q24H STEPH Administration Piperacillin Sod/Tazobactam 100 mls @ 25 mls/hr 10/13/18 16:00 10/13/18 16:55 Sod 3.375 gm/ Sodium Chloride IV 25 mls/hr Q8H STEPH Administration Insulin Aspart 1 - 9 unit 10/11/18 21:00 10/13/18 17:33 Novolog SUBQ Not Given 0800,1200,1700,2100 [facility] Protocol Metoprolol Tartrate 25 mg 10/09/18 21:00 10/13/18 11:04 Lopressor PO 25 mg BID STEPH Administration Morphine Sulfate 4 mg 10/12/18 09:06 10/13/18 06:25 Morphine IVP 4 mg Q2H PRN Administration Dyspnea Nitroglycerin 1 inch 10/12/18 09:01 10/13/18 18:07 Nitro-Bid (Pkt) TOP 1 inch Q8H STEPH Administration Polyethylene Glycol 17 gm 10/10/18 09:00 10/13/18 11:05 Miralax PO 17 gm DAILY STEPH Administration Prazosin HCl 1 mg 10/09/18 21:00 10/12/18 21:30 Minipress PO 1 mg QPM STEPH Administration Saccharomyces Boulardii 250 mg 10/10/18 17:00 10/13/18 18:10 Florastor PO 250 mg BIDWM STEPH Administration Sodium Chloride 10 ml 10/09/18 12:42 10/13/18 14:07 Normal Saline Flush 0.9% IVP 10 ml PRN PRN Administration NEEDED PER PROVIDER ORDERS Sodium Chloride 10 ml 10/09/18 17:00 10/13/18 18:14 Normal Saline Flush 0.9% IVP Not Given 0100,0900,1700 STEPH Zinc Sulfate 220 mg 10/11/18 09:00 10/13/18 11:04 PO 220 mg DAILY STEPH Administration - Lab Result Fish Bone Diagrams: 10/12/18 04:15 10/13/18 07:25 - Additional Planning My Orders: My Active Orders 10/13/18 09:00 Heparin 03508PTMPG/500Ml (D5w) 25,000 unit in 500 ml IV 12 unit/kg/hr 10/13/18 14:00 FUROSEMIDE INJ 40mg VIAL [LASIX INJ 40 mg VIAL] 40 mg IVP TID 10/14/18 05:00 BNP - B-NATRIURETIC PEPTIDE [IAI] DAILYLAB 10/14/18 09:00 Chest 1 View X-Ray [XR] DAILY 10/15/18 09:00 Chest 1 View X-Ray [XR] DAILY 10/15/18 13:30 VANCOMYCIN TROUGH [CHEM] Timed Subjective - Subjective Patient Reports: Nausea Objective Vital Signs: Vital Signs - 24 hr 10/12/18 10/12/18 10/12/18 19:00 20:25 21:00 Temperature 37 C Heart Rate 107 H Heart Rate [ 108 H 108 H Monitoring electrodes] Respiratory 20 20 22 Rate Blood Pressure Blood Pressure 178/92 H 185/80 H [Right Brachial artery] O2 Saturation 94 94 10/12/18 10/12/18 10/13/18 21:26 23:00 01:00 Temperature Heart Rate Heart Rate [ 90 92 Monitoring electrodes] Respiratory 23 15 Rate Blood Pressure 185/80 H Blood Pressure 142/70 H 164/79 H [Right Brachial artery] O2 Saturation 94 95 10/13/18 10/13/18 10/13/18 03:00 05:00 07:00 Temperature 37 C Heart Rate Heart Rate [ 81 82 86 Monitoring electrodes] Respiratory 23 21 18 Rate Blood Pressure Blood Pressure 119/44 L 142/49 H 165/66 H [Right Brachial artery] O2 Saturation 92 93 93 10/13/18 10/13/18 10/13/18 07:53 08:39 08:54 Temperature 98.4 C H Heart Rate 81 84 Heart Rate [ 84 84 Monitoring electrodes] Respiratory 19 21 Rate Blood Pressure Blood Pressure 163/77 H 116/98 H [Right Brachial artery] O2 Saturation 91 L 95 10/13/18 10/13/18 10/13/18 11:00 11:04 11:55 Temperature 36.1 C L Heart Rate Heart Rate [ 78 80 Monitoring electrodes] Respiratory 17 20 Rate Blood Pressure 161/76 H Blood Pressure 110/55 L [Right Brachial artery] O2 Saturation 94 94 10/13/18 10/13/18 10/13/18 13:00 13:27 14:45 Temperature 36.6 C Heart Rate 66 Heart Rate [ 68 65 Monitoring electrodes] Respiratory 18 17 18 Rate Blood Pressure Blood Pressure 161/74 H 178/72 H [Right Brachial artery] O2 Saturation 95 93 10/13/18 10/13/18 17:02 17:30 Temperature 36.6 C Heart Rate 82 Heart Rate [ 76 Monitoring electrodes] Respiratory 19 21 Rate Blood Pressure Blood Pressure [Right Brachial artery] O2 Saturation 93 Oxygen O2 Source Oxymizer I&O (Last 24 Hrs): Intake and Output Totals x24h 10/11/18 10/12/18 10/13/18 23:59 23:59 23:59 Intake Total 4400.718 3480.000 2082.483 Output Total 1140 3735 5235 Balance 3260.718 -255 -3152.517 General: Alert, Oriented x3 HEENT: Mucous membr. moist/pink, Other (Dishevled) Neck: Supple Neuro: Alert Cardiovascular: Regular rate, No murmurs Respiratory: Rales Abdomen: Soft, No tenderness Extremities: Other (R, BKA, L hs 1+ edema and unchanged great toe ulcer) - Results Results: Laboratory Results WBC 9.9 x10^3/uL (4.8-10.8) 10/12/18 04:15 RBC 4.47 10^6/uL (4.70-6.10) L 10/12/18 04:15 Hgb 12.8 g/dL (14.0-18.0) L 10/12/18 04:15 Hct 39.9 % (42.0-52.0) L 10/12/18 04:15 MCV 89.3 fL (80.0-94.0) 10/12/18 04:15 MCH 28.5 pg (27.0-31.0) 10/12/18 04:15 MCHC 31.9 g/dL (32.0-36.0) L 10/12/18 04:15 RDW 16.1 % (12.0-15.0) H 10/12/18 04:15 Plt Count 177 10^3/uL (130-450) 10/12/18 04:15 MPV 9.2 fL (7.4-11.4) 10/12/18 04:15 Neut # (Auto) 7.7 10^3/uL (1.5-6.6) H 10/12/18 04:15 Lymph # (Auto) 1.1 10^3/uL (1.5-3.5) L 10/12/18 04:15 [place] # (Auto) 1.0 10^3/uL (0.0-1.0) 10/12/18 04:15 Eos # (Auto) 0.1 10^3/uL (0.0-0.7) 10/12/18 04:15 Baso # (Auto) 0.0 10^3/uL (0.0-0.1) 10/12/18 04:15 Absolute Nucleated RBC 0.00 x10^3/uL 10/12/18 04:15 Nucleated RBC % 0.0 /100WBC 10/12/18 04:15 ESR 26 mm/Hr (0-20) H 10/09/18 10:35 Anti-Xa Level 0.2 U/mL (-0.7) 10/13/18 16:24 Bld Gas Analysis Time 1126 10/13/18 11:14 Sample Site LEFT RADIAL 10/13/18 11:14 ABG pH 7.37 (7.35-7.45) 10/13/18 11:14 ABG pCO2 64 mmHg (34-45) H* 10/13/18 11:14 ABG pO2 67 mmHg (80-100) L 10/13/18 11:14 ABG HCO3 36.0 mmol/L (22.0-26.0) H 10/13/18 11:14 ABG Total CO2 38.0 MMOL/L (21.0-29.0) H 10/13/18 11:14 ABG O2 Saturation 94 % (94-98) 10/13/18 11:14 ABG Oximetry Spot Check 93 % 10/13/18 11:14 ABG Base Excess 8.4 mmol/L (-2.0-3.0) H 10/13/18 11:14 Jin Test POSITIVE 10/13/18 11:14 Respiration Rate 20 b/min 10/13/18 11:14 O2 Delivery Device OXYMASK 10/13/18 11:14 O2 Liters/Min 10.00 LPM 10/12/18 14:08 Vent Mode SYNCHRONOUS/TIMES 10/11/18 22:20 FiO2 75.00 10/11/18 22:20 EPAP 5 cmH2O 10/11/18 22:20 IPAP 12 cmH2O 10/11/18 22:20 Sodium 137 mmol/L (135-145) 10/13/18 07:25 Potassium 4.0 mmol/L (3.5-5.0) 10/13/18 07:25 Chloride 97 mmol/L (101-111) L 10/13/18 07:25 Carbon Dioxide 35 mmol/L (21-32) H 10/13/18 07:25 Anion Gap 5.0 (6-13) L 10/13/18 07:25 BUN 22 mg/dL (6-20) H 10/13/18 07:25 Creatinine 1.6 mg/dL (0.6-1.2) H 10/13/18 07:25 Estimated GFR (MDRD) 42 (>89) L 10/13/18 07:25 Glucose 144 mg/dL (70-100) H 10/13/18 07:25 POC Whole Bld Glucose 130 mg/dL (70 - 100) H 10/13/18 17:28 Glycated Hemoglobin 6.3 % (4.6-6.2) H 10/09/18 10:27 Estim Average Glucose 134 (70-100) H 10/09/18 10:27 Lactic Acid 0.7 mmol/L (0.5-2.2) 10/11/18 08:17 Calcium 8.4 mg/dL (8.5-10.3) L 10/13/18 07:25 Phosphorus 4.4 mg/dL (2.5-4.6) 10/13/18 07:25 Magnesium 1.9 mg/dL (1.7-2.8) 10/13/18 07:25 Total Bilirubin 0.9 mg/dL (0.2-1.0) 10/13/18 07:25 AST 16 IU/L (10-42) 10/13/18 07:25 ALT 16 IU/L (10-60) 10/13/18 07:25 Alkaline Phosphatase 48 IU/L (42-121) 10/13/18 07:25 Troponin I < 0.04 ng/mL (<0.49) 10/12/18 09:24 C-Reactive Protein < 1.0 mg/dL (0-1.0) 10/09/18 10:35 B-Natriuretic Peptide 398 pg/mL (5-100) H 10/13/18 07:25 Total Protein 6.1 g/dL (6.7-8.2) L 10/13/18 07:25 Albumin 2.4 g/dL (3.2-5.5) L 10/13/18 07:25 Globulin 3.7 g/dL (2.1-4.2) 10/13/18 07:25 Albumin/Globulin Ratio 0.6 (1.0-2.2) L 10/13/18 07:25 Lipase 42 U/L (22-51) 10/09/18 10:35 Nasal Screen MRSA (PCR) NEGATIVE (NEGATIVE) 10/11/18 09:00 Last Dose Date 10/12/18 10/13/18 07:25 Last Dose Time 14:15 10/13/18 07:25 Vancomycin Trough 22.1 ug/mL (10.0-20.0) H 10/13/18 07:25 Random Vancomycin 26.5 ug/mL 10/11/18 13:22 Influenza A (Rapid) Negative (Negative) 10/11/18 09:00 Influenza B (Rapid) Negative (Negative) 10/11/18 09:00
[2018-10-13] MEDS: PRAZOSIN 1 MG CAPSULE PO SCH (20:32)
[2018-10-14] MEDS: PIPERACILLIN/TAZOBACTAM 3.375 GM in SODIUM CHLORIDE 0.9% MINIBAG 100 ML IV SCH ×3 (00:58→16:41)
[2018-10-14] MEDS: NITROGLYCERIN 2% PASTE TOP SCH ×3 (00:58→16:33)
[2018-10-14] MEDS: SODIUM CHLORIDE FLUSH 0.9% 10 ML SYRINGE IVP PRN ×3 (00:58→22:20)
[2018-10-14] MEDS: HEPARIN 25000UNITS/500ML (D5W) 25,000 UNIT/500 ML BAG IV SCH ×2 (02:33→18:21)
[2018-10-14] MEDS: MORPHINE 4 MG/ML VIAL IVP PRN ×4 (03:52→20:45)
[2018-10-14] MEDS: SODIUM CHLORIDE FLUSH 0.9% 10 ML SYRINGE IVP SCH ×4 (06:03→20:45)
[2018-10-14] MEDS: FUROSEMIDE 40 MG/4 ML VIAL IVP SCH ×3 (06:03→22:20)
[2018-10-14 06:52] LABS: CALCIUM 8.5 mg/dL (8.5-10.3); CREATININE 1.4 mg/dL (0.6-1.2); MAGNESIUM 1.8 mg/dL (1.7-2.8); PHOSPHORUS 3.1 mg/dL (2.5-4.6)
[2018-10-14] MEDS: IPRATROPIUM/ALBUTEROL 3 ML NEB INH SCH ×4 (07:32→19:36)
[2018-10-14] MEDS: POLYETHYLENE GLYCOL 3350 17 GM PACKET PO SCH (08:17)
[2018-10-14] MEDS: FAMOTIDINE 20 MG/2 ML VIAL IVP SCH ×2 (08:45→20:44)
[2018-10-14] MEDS: INSULIN ASPART 300 UNIT/3 ML PEN SUBQ SCH ×4 (08:56→20:45)
[2018-10-14] MEDS ORDERED: PROCHLORPERAZINE 10 MG/2 ML VIAL IVP PRN (09:05)
--- NOTE | 2018-10-14 09:08 | XRAY Report ---
Reason: F/U L sided interstitial lung disease Procedure Date: 10/14/2018 Accession Number: [id number] / [id number] Procedure: XR - Chest 1 View X-Ray CPT Code: 88292 FULL RESULT: EXAM: CHEST RADIOGRAPHY EXAM DATE: 10/14/2018 06:29 AM. CLINICAL HISTORY: Followup left-sided interstitial lung disease. COMPARISON: CHEST 1 VIEW 10/13/2018 5:51 AM. XR CHEST PA AND LAT 05/14/2007 8:58 AM. CHEST 1 VIEW 10/12/2018 7:51 AM. CHEST 1 VIEW 10/11/2018 7:28 AM. TECHNIQUE: 1 view. FINDINGS: Lungs/Pleura: Mixed coarse interstitial and airspace opacities involve the lower two-thirds of the left lung with associated small effusion. No significant change from prior. Smaller amounts of similar airspace opacity are noted in the right upper lung abutting the minor fissure and in the right infrahilar lung, slightly improved from yesterday's exam. Mediastinum: Within exam limitations, the cardiomediastinal contour is normal. Other: None. IMPRESSION: Coarse mixed airspace/interstitial opacities favors infectious process, stable on the left, slightly improved on the right. Small left effusion. RADIA
--- NOTE | 2018-10-14 09:18 | PROVIDER PROGRESS NOTE ---
Assessment/Plan - Problem List (1) Acute respiratory failure with hypoxia and hypercapnia Assessment/Plan: This is felt to be multifactorial: from pneumonia, volume overload and underlying COPD. The CXR this a.m. shows some improvement on the R, no change on (more involved) L side. Continue iv antibiotics, bid iv diuretics and nebs plus pulmonary toilet. Continue supplemental O2 as patient will tolerate (he refused going back on BIPAP when it was ordered yesterday) and remains on vent mask or oximizer. (2) HCAP (healthcare-associated pneumonia) Assessment/Plan: As above (3) Pulmonary edema Assessment/Plan: Today's chest x-ray shows mild improvement, probably due to diuresis He is on iv bid diuretic doses, has good urine output and in negative fluid balance since the diuretics were started, 3 days ago. (4) FELIX (acute kidney injury) Assessment/Plan: His creatinine has been mildly elevated at 1.4-1.6, since the last 3 days, when his IV diuretics were started. Will continue the diuresis but watch the creatinine carefully, BMP daily. (5) N&V (nausea and vomiting) Assessment/Plan: He has had N/V for the last 2 mornings, after breakfast. His exam is benign with no tenderness and soft abd. The most likely etiology is diabetic gastroparesis. Will order scheduled Reglan ac and monitor. (6) Cellulitis of left foot Assessment/Plan: Osteo was ruled out by foot MRI. Continue iv antibiotics. Will order wound care consult if not yet done. Ortho is following along, no debridement or amputation was done. (7) Ischemic leg ulcer Assessment/Plan: The patient was started on IV heparin, with a bolus, early in this admission, when his femoral artery revealed an occlusion by Doppler. The heparin was off for several days when he developed hemoptisis. The heparin was restarted yesterday afternoon, with no boluses ever. There are some blood tinged yellow sputum samples that I saw today. Heparin to be continued as long as the sputum only has minimal blood streaks. Continue to follow his CBC daily. (8) Diabetes mellitus type 2 with complications, uncontrolled Assessment/Plan: Continue a carb controlled, pured diet (because of needing the Ventimask), insulin coverage and sliding scale for glucose checks (9) HTN (hypertension) Qualifiers: Hypertension type: essential hypertension Qualified Code(s): I10 - Essential (primary) hypertension Assessment/Plan: BP is controlled on current meds (10) Hx of right BKA Assessment/Plan: Stable (11) Aortic stenosis, moderate Assessment/Plan: This was diagnosed by echo done on this admission (12) Mitral stenosis Assessment/Plan: This was diagnosed by echo done on this admission (13) Chronic osteomyelitis involving ankle and foot Qualifiers: Laterality: left Qualified Code(s): M86.672 - Other chronic osteomyelitis, left ankle and foot Assessment/Plan: This was ruled out with the foot MRI - Current Meds Current Meds: Current Medications Generic Name Dose Route Start Last Admin Trade Name Freq PRN Reason Stop Dose Admin Albuterol/Ipratropium 3 ml 10/10/18 02:37 10/12/18 07:14 Duoneb INH 3 ml Q4HR PRN Administration Wheezing Albuterol/Ipratropium 3 ml 10/12/18 11:00 10/14/18 07:32 Duoneb INH 3 ml RTQID STEPH Administration Famotidine 20 mg 10/11/18 09:00 10/14/18 08:45 Pepcid IVP 20 mg BID STEPH Administration Furosemide 40 mg 10/13/18 14:00 10/14/18 06:03 Lasix Inj 40 Mg Vial IVP 40 mg TID STEPH Administration Guaifenesin 600 mg 10/11/18 21:00 10/13/18 20:32 Mucinex PO 600 mg BID STEPH Administration Levofloxacin 750 mg in 150 mls @ 100 mls/hr 10/11/18 09:00 10/13/18 12:27 Levaquin 750 Mg/150 Ml IV Infused Q24H STEPH Infusion Dextrose 1,000 mls @ 40 mls/hr 10/12/18 09:00 10/14/18 05:29 D5w IV 40 mls/hr .Q25H STEPH Infusion Heparin Sodium/Dextrose 25,000 unit in 500 mls @ 27.36 mls/hr 10/13/18 09:00 10/14/18 06:57 IV 14 unit/kg/hr .[id number] STEPH 31.92 mls/hr Titration Protocol 12 UNIT/KG/HR Vancomycin HCl 1 gm/ 500 mls @ 250 mls/hr 10/13/18 14:00 10/13/18 16:07 Vancomycin HCl 500 mg/ Sodium IV Infused Chloride Q24H STEPH Infusion Piperacillin Sod/Tazobactam 100 mls @ 25 mls/hr 10/13/18 16:00 10/14/18 08:44 Sod 3.375 gm/ Sodium Chloride IV 25 mls/hr Q8H STEPH Administration Insulin Aspart 1 - 9 unit 10/11/18 21:00 10/14/18 08:56 Novolog SUBQ 1 unit 0800,1200,1700,2100 STEPH Administration Protocol Metoprolol Tartrate 25 mg 10/09/18 21:00 10/13/18 20:32 Lopressor PO 25 mg BID STEPH Administration Morphine Sulfate 4 mg 10/12/18 09:06 10/14/18 06:24 Morphine IVP 4 mg Q2H PRN Administration Dyspnea Nitroglycerin 1 inch 10/12/18 09:01 10/14/18 08:47 Nitro-Bid (Pkt) TOP 1 inch Q8H STEPH Administration Polyethylene Glycol 17 gm 10/10/18 09:00 10/14/18 08:17 Miralax PO Not Given DAILY STEPH Prazosin HCl 1 mg 10/09/18 21:00 10/13/18 20:32 Minipress PO 1 mg QPM STEPH Administration Saccharomyces Boulardii 250 mg 10/10/18 17:00 10/13/18 18:10 Florastor PO 250 mg BIDWM STEPH Administration Sodium Chloride 10 ml 10/09/18 12:42 10/14/18 03:52 Normal Saline Flush 0.9% IVP 10 ml PRN PRN Administration NEEDED PER PROVIDER ORDERS Sodium Chloride 10 ml 10/09/18 17:00 10/14/18 08:47 Normal Saline Flush 0.9% IVP 10 ml 0100,0900,1700 STEPH Administration Zinc Sulfate 220 mg 10/11/18 09:00 10/13/18 11:04 PO 220 mg DAILY STEPH Administration - Lab Result Fish Bone Diagrams: 10/12/18 04:15 10/14/18 06:27 - Additional Planning My Orders: My Active Orders 10/13/18 09:00 Heparin [id number]/500Ml (D5w) 25,000 unit in 500 ml IV 12 unit/kg/hr 10/13/18 14:00 FUROSEMIDE INJ 40mg VIAL [LASIX INJ 40 mg VIAL] 40 mg IVP TID 10/14/18 09:05 Prochlorperazine Inj [Compazine Inj] 10 mg IVP Q4HR PRN 10/15/18 09:00 Chest 1 View X-Ray [XR] DAILY 10/15/18 13:30 VANCOMYCIN TROUGH [CHEM] Timed Subjective - Subjective Patient Reports: Nausea Nursing Reports: Other (O2 sats were good overnight, until he got more restless this a.m. after breakfast.) Objective Vital Signs: Vital Signs - 24 hr 10/13/18 10/13/18 10/13/18 11:00 11:04 11:55 Temperature 36.1 C L Heart Rate Heart Rate [ 78 80 Monitoring electrodes] Respiratory 17 20 Rate Blood Pressure 161/76 H Blood Pressure [Left Brachial artery] Blood Pressure 110/55 L [Right Brachial artery] O2 Saturation 94 94 10/13/18 10/13/18 10/13/18 13:00 13:27 14:45 Temperature 36.6 C Heart Rate 66 Heart Rate [ 68 65 Monitoring electrodes] Respiratory 18 17 18 Rate Blood Pressure Blood Pressure [Left Brachial artery] Blood Pressure 161/74 H 178/72 H [Right Brachial artery] O2 Saturation 95 93 10/13/18 10/13/18 10/13/18 17:02 17:30 18:58 Temperature 36.6 C Heart Rate 82 Heart Rate [ 76 91 Monitoring electrodes] Respiratory 19 21 25 H Rate Blood Pressure Blood Pressure 93/73 [Left Brachial artery] Blood Pressure [Right Brachial artery] O2 Saturation 93 91 L 10/13/18 10/13/18 10/13/18 20:32 21:00 21:15 Temperature 37 C Heart Rate 85 Heart Rate [ 80 Monitoring electrodes] Respiratory 17 20 Rate Blood Pressure 106/88 H Blood Pressure 112/65 [Left Brachial artery] Blood Pressure [Right Brachial artery] O2 Saturation 95 10/13/18 10/14/18 10/14/18 23:00 01:00 03:00 Temperature 37.0 C Heart Rate Heart Rate [ 70 75 83 Monitoring electrodes] Respiratory 25 H 20 20 Rate Blood Pressure Blood Pressure 75/58 L 95/75 98/64 [Left Brachial artery] Blood Pressure [Right Brachial artery] O2 Saturation 91 L 92 97 10/14/18 10/14/18 10/14/18 04:18 05:00 07:00 Temperature Heart Rate Heart Rate [ 84 78 70 Monitoring electrodes] Respiratory 19 20 19 Rate Blood Pressure Blood Pressure 100/63 93/79 117/86 H [Left Brachial artery] Blood Pressure [Right Brachial artery] O2 Saturation 93 99 92 10/14/18 10/14/18 07:32 08:59 Temperature 36.7 C Heart Rate 79 Heart Rate [ 99 Monitoring electrodes] Respiratory 22 21 Rate Blood Pressure Blood Pressure 106/73 [Left Brachial artery] Blood Pressure [Right Brachial artery] O2 Saturation 86 L Oxygen O2 Source Oxymizer I&O (Last 24 Hrs): Intake and Output Totals x24h 10/12/18 10/13/18 10/14/18 23:59 23:59 23:59 Intake Total 3480.000 3116.263 1596.771 Output Total 8795 5945 1975 Balance -255 -2828.737 -378.229 General: Alert, Oriented x3 HEENT: Mucous membr. moist/pink, Other (Disheveled.) Neck: Supple Neuro: Non Focal Cardiovascular: Regular rate Respiratory: Breath sounds nml Abdomen: Soft Extremities: Other (R BKA. L foot has more bright red toe ulcer and 1+ edema of ankle) - Results Results: Laboratory Results WBC 9.9 x10^3/uL (4.8-10.8) 10/12/18 04:15 RBC 4.47 10^6/uL (4.70-6.10) L 10/12/18 04:15 Hgb 12.8 g/dL (14.0-18.0) L 10/12/18 04:15 Hct 39.9 % (42.0-52.0) L 10/12/18 04:15 MCV 89.3 fL (80.0-94.0) 10/12/18 04:15 MCH 28.5 pg (27.0-31.0) 10/12/18 04:15 MCHC 31.9 g/dL (32.0-36.0) L 10/12/18 04:15 RDW 16.1 % (12.0-15.0) H 10/12/18 04:15 Plt Count 177 10^3/uL (130-450) 10/12/18 04:15 MPV 9.2 fL (7.4-11.4) 10/12/18 04:15 Neut # (Auto) 7.7 10^3/uL (1.5-6.6) H 10/12/18 04:15 Lymph # (Auto) 1.1 10^3/uL (1.5-3.5) L 10/12/18 04:15 Cache # (Auto) 1.0 10^3/uL (0.0-1.0) 10/12/18 04:15 Eos # (Auto) 0.1 10^3/uL (0.0-0.7) 10/12/18 04:15 Baso # (Auto) 0.0 10^3/uL (0.0-0.1) 10/12/18 04:15 Absolute Nucleated RBC 0.00 x10^3/uL 10/12/18 04:15 Nucleated RBC % 0.0 /100WBC 10/12/18 04:15 ESR 26 mm/Hr (0-20) H 10/09/18 10:35 Anti-Xa Level 0.4 U/mL (-0.7) 10/14/18 06:27 Bld Gas Analysis Time 1126 10/13/18 11:14 Sample Site LEFT RADIAL 10/13/18 11:14 ABG pH 7.37 (7.35-7.45) 10/13/18 11:14 ABG pCO2 64 mmHg (34-45) H* 10/13/18 11:14 ABG pO2 67 mmHg (80-100) L 10/13/18 11:14 ABG HCO3 36.0 mmol/L (22.0-26.0) H 10/13/18 11:14 ABG Total CO2 38.0 MMOL/L (21.0-29.0) H 10/13/18 11:14 ABG O2 Saturation 94 % (94-98) 10/13/18 11:14 ABG Oximetry Spot Check 93 % 10/13/18 11:14 ABG Base Excess 8.4 mmol/L (-2.0-3.0) H 10/13/18 11:14 Jin Test POSITIVE 10/13/18 11:14 Respiration Rate 20 b/min 10/13/18 11:14 O2 Delivery Device OXYMASK 10/13/18 11:14 O2 Liters/Min 10.00 LPM 10/12/18 14:08 Vent Mode SYNCHRONOUS/TIMES 10/11/18 22:20 FiO2 75.00 10/11/18 22:20 EPAP 5 cmH2O 10/11/18 22:20 IPAP 12 cmH2O 10/11/18 22:20 Sodium 138 mmol/L (135-145) 10/14/18 06:27 Potassium 3.1 mmol/L (3.5-5.0) L 10/14/18 06:27 Chloride 89 mmol/L (101-111) L 10/14/18 06:27 Carbon Dioxide 37 mmol/L (21-32) H 10/14/18 06:27 Anion Gap 12.0 (6-13) 10/14/18 06:27 BUN 18 mg/dL (6-20) 10/14/18 06:27 Creatinine 1.4 mg/dL (0.6-1.2) H 10/14/18 06:27 Estimated GFR (MDRD) 49 (>89) L 10/14/18 06:27 Glucose 149 mg/dL (70-100) H 10/14/18 06:27 POC Whole Bld Glucose 159 mg/dL (70 - 100) H 10/14/18 07:44 Glycated Hemoglobin 6.3 % (4.6-6.2) H 10/09/18 10:27 Estim Average Glucose 134 (70-100) H 10/09/18 10:27 Lactic Acid 0.7 mmol/L (0.5-2.2) 10/11/18 08:17 Calcium 8.5 mg/dL (8.5-10.3) 10/14/18 06:27 Phosphorus 3.1 mg/dL (2.5-4.6) 10/14/18 06:27 Magnesium 1.8 mg/dL (1.7-2.8) 10/14/18 06:27 Total Bilirubin 0.9 mg/dL (0.2-1.0) 10/13/18 07:25 AST 16 IU/L (10-42) 10/13/18 07:25 ALT 16 IU/L (10-60) 10/13/18 07:25 Alkaline Phosphatase 48 IU/L (42-121) 10/13/18 07:25 Troponin I < 0.04 ng/mL (<0.49) 10/12/18 09:24 C-Reactive Protein < 1.0 mg/dL (0-1.0) 10/09/18 10:35 B-Natriuretic Peptide 412 pg/mL (5-100) H 10/14/18 06:27 Total Protein 6.1 g/dL (6.7-8.2) L 10/13/18 07:25 Albumin 2.4 g/dL (3.2-5.5) L 10/13/18 07:25 Globulin 3.7 g/dL (2.1-4.2) 10/13/18 07:25 Albumin/Globulin Ratio 0.6 (1.0-2.2) L 10/13/18 07:25 Lipase 42 U/L (22-51) 10/09/18 10:35 Nasal Screen MRSA (PCR) NEGATIVE (NEGATIVE) 10/11/18 09:00 Last Dose Date 10/12/18 10/13/18 07:25 Last Dose Time 14:15 10/13/18 07:25 Vancomycin Trough 22.1 ug/mL (10.0-20.0) H 10/13/18 07:25 Random Vancomycin 26.5 ug/mL 10/11/18 13:22 Influenza A (Rapid) Negative (Negative) 10/11/18 09:00 Influenza B (Rapid) Negative (Negative) 10/11/18 09:00
[2018-10-14] MEDS: SACCHAROMYCES BOULARDII 250 MG CAPSULE PO SCH ×2 (09:27→16:31)
[2018-10-14] MEDS: ZINC SULFATE 220 MG CAPSULE PO SCH (09:27)
[2018-10-14] MEDS: guaiFENesin 600 MG TABLET PO SCH ×2 (09:27→20:43)
[2018-10-14] MEDS ORDERED: POTASSIUM CHLORIDE 20 MEQ TABLET PO SCH (10:44)
[2018-10-14] MEDS: METOCLOPRAMIDE 10 MG/2 ML VIAL IVP SCH ×2 (11:33→16:33)
[2018-10-14] MEDS: DEXTROSE 5% 1,000 ML IV SCH (12:12)
[2018-10-14] MEDS: METOPROLOL TARTRATE 25 MG TABLET PO SCH ×2 (12:12→20:44)
[2018-10-14] MEDS: levoFLOXacin 750 MG/150 ML 750 MG/150 ML BAG IV SCH (12:17)
[2018-10-14] MEDS ORDERED: VANCOMYCIN 1 GM VIAL ONE (14:33)
[2018-10-14] MEDS: VANCOMYCIN INJ 1 GM, VANCOMYCIN INJ 500 MG in SODIUM CHLORIDE 0.9% 500 ML IV SCH (14:40)
[2018-10-14] MEDS ORDERED: SODIUM CHLORIDE FLUSH 0.9% 10 ML SYRINGE ONE (14:59)
[2018-10-14] MEDS: PRAZOSIN 1 MG CAPSULE PO SCH (20:44)
[2018-10-15] MEDS: NITROGLYCERIN 2% PASTE TOP SCH ×2 (00:42→08:32)
[2018-10-15] MEDS: PIPERACILLIN/TAZOBACTAM 3.375 GM in SODIUM CHLORIDE 0.9% MINIBAG 100 ML IV SCH ×2 (00:42→08:28)
[2018-10-15] MEDS: SODIUM CHLORIDE FLUSH 0.9% 10 ML SYRINGE IVP PRN ×2 (05:56→07:10)
[2018-10-15] MEDS: FUROSEMIDE 40 MG/4 ML VIAL IVP SCH (05:56)
[2018-10-15] MEDS: METOCLOPRAMIDE 10 MG/2 ML VIAL IVP SCH ×2 (07:10→10:40)
[2018-10-15] MEDS: IPRATROPIUM/ALBUTEROL 3 ML NEB INH SCH ×2 (08:03→11:50)
[2018-10-15] MEDS: INSULIN ASPART 300 UNIT/3 ML PEN SUBQ SCH ×2 (08:22→12:01)
[2018-10-15] MEDS: HEPARIN 25000UNITS/500ML (D5W) 25,000 UNIT/500 ML BAG IV SCH (08:23)
[2018-10-15] MEDS: FAMOTIDINE 20 MG/2 ML VIAL IVP SCH (08:26)
[2018-10-15] MEDS: guaiFENesin 600 MG TABLET PO SCH (08:30)
[2018-10-15] MEDS: ZINC SULFATE 220 MG CAPSULE PO SCH (08:30)
[2018-10-15] MEDS: SACCHAROMYCES BOULARDII 250 MG CAPSULE PO SCH (08:30)
[2018-10-15] MEDS: POLYETHYLENE GLYCOL 3350 17 GM PACKET PO SCH (08:33)
[2018-10-15] MEDS: SODIUM CHLORIDE FLUSH 0.9% 10 ML SYRINGE IVP SCH (08:33)
--- NOTE | 2018-10-15 08:40 | XRAY Report ---
Reason: F/U L sided interstitial lung disease Procedure Date: 10/15/2018 Accession Number: [id number] / [id number] Procedure: XR - Chest 1 View X-Ray CPT Code: 94907 FULL RESULT: EXAM: CHEST RADIOGRAPHY EXAM DATE: 10/15/2018 07:04 AM. CLINICAL HISTORY: F/U L sided interstitial lung disease. COMPARISON: CHEST 1 VIEW 10/14/2018 6:29 AM CHEST 1 VIEW 10/13/2018 5:51 AM. TECHNIQUE: 1 view. FINDINGS: Lungs/Pleura: Bilateral interstitial prominence again noted, left greater than right, with superimposed groundglass opacity with a basilar predominance, also left greater than right. Mild interval increase at the right base since the prior study. No significant change on the left. Possible adjacent small effusions. No pneumothorax. Mediastinum: Cardiac silhouette size appears stable. Atherosclerotic vascular calcification. Other: None. IMPRESSION: Bilateral interstitial prominence with superimposed groundglass again noted, left greater than right. Mild worsening groundglass at the right base since the prior study. Adjacent possible small effusions, left greater than right. RADIA
[2018-10-15] MEDS: levoFLOXacin 750 MG/150 ML 750 MG/150 ML BAG IV SCH (08:58)
[2018-10-15] MEDS ORDERED: methylPREDNISolone SUCCINATE 125 MG/2 ML VIAL IVP SCH (09:19)
[2018-10-15 09:57] LABS: BASOPHILS % (AUTO) 0.5 %; EOSINOPHILS # (AUTO) 0.2 10^3/uL (0.0-0.7); EOSINOPHILS % (AUTO) 2.9 %; HGB - HEMOGLOBIN 13.1 g/dL (14.0-18.0); LYMPHOCYTES # (AUTO) 0.7 10^3/uL (1.5-3.5); LYMPHOCYTES % (AUTO) 10.3 %; MEAN CORPUSCULAR HEMOGLOBIN 28.6 pg (27.0-31.0); MEAN CORPUSCULAR HGB CONC 33.3 g/dL (32.0-36.0); MEAN CORPUSCULAR VOLUME 85.8 fL (80.0-94.0); MEAN PLATELET VOLUME 8.6 fL (7.4-11.4); MONOCYTES # (AUTO) 0.5 10^3/uL (0.0-1.0); MONOCYTES % (AUTO) 7.9 %; NEUTROPHILS # (AUTO) 5.3 10^3/uL (1.5-6.6); NEUTROPHILS % (AUTO) 78.4 %; PLT - PLATELET COUNT 180 10^3/uL (130-450); RED BLOOD COUNT 4.58 10^6/uL (4.70-6.10); RED CELL DISTRIBUTION WIDTH 15.3 % (12.0-15.0); WHITE BLOOD COUNT 6.7 x10^3/uL (4.8-10.8)
[2018-10-15 10:20] LABS: ALBUMIN 2.4 g/dL (3.2-5.5); ALBUMIN/GLOBULIN RATIO 0.6 (1.0-2.2); BILIRUBIN,TOTAL 1.1 mg/dL (0.2-1.0); CALCIUM 8.4 mg/dL (8.5-10.3); CREATININE 1.5 mg/dL (0.6-1.2); TOTAL PROTEIN 6.2 g/dL (6.7-8.2)
[2018-10-15] MEDS ORDERED: POTASSIUM CHLORIDE 20 MEQ TABLET PO SCH (10:49)
[2018-10-15] MEDS ORDERED: ACETAMINOPHEN 325 MG TABLET PO PRN (11:31)
[2018-10-15 12:08] VITALS: BP 96/67
[2018-10-15] MEDS: METOPROLOL TARTRATE 25 MG TABLET PO SCH (12:32)
--- NOTE | 2018-10-16 19:32 | Discharge Plan ---
Discharge Plan Disposition: 02 Transfer Acute Care Hosp Condition: Stable Prescriptions: Ipratropium/Albuterol [Combivent Respimat] 4 gm IH Q4HR PRN #1 aer.w.adap PRN Reason: Shortness Of Air/Wheezing No Smoking: If you smoke, Please STOP! Call for help. Follow-up with: KATHRIN MIJARES MD [Primary Care Provider] -
--- NOTE | 2018-10-18 18:28 | DISCHARGE SUMMARY ---
Physician: Amelia Evans MD DATE OF ADMISSION: 10/09/2018 DATE OF DISCHARGE: 10/15/2018 HISTORY OF PRESENT ILLNESS: This is a 78-year-old white male with a history of noninsulin-dependent diabetes, right BKA, chronic left toe wound, and noncompliance, as he has not seen a doctor in 2-3 years. He presented to the emergency room complaining of swelling and pain of the left great toe where he has a chronic wound. He was last managed with debridement in February 2017 at the [facility] in [place] and was then transferred to [facility] for a nonhealing diabetic left foot ulcer. He was admitted now for management of this painful toe with an ulcer, and to evaluate for cellulitis or osteomyelitis and manage his diabetes. His admission glucose was 139, A1c was 6.3 and white blood count was not elevated at 8.2 but ESR was elevated at 26. HOSPITAL COURSE AND DISCHARGE DIAGNOSES 1. Acute respiratory failure with hypoxia and hypercapnia. On the second night of his hospitalization, he went into acute respiratory failure with hypoxia. He was evaluated by the dentures lab technician. Oxygen saturations were in the 80% range on supplemental nasal cannula oxygen, so he was put on the nonrebreather mask and eventually a BiPAP, to achieve saturations of 90% and he was transferred to the ICU. His ABG at this time showed a pH of 7.19, pCO2 of 80 and chest x-ray showed a left sided infiltrate. His sputum was blood tinged so the heparin that had been started (see below) was discontinued. He was on iv Vancomycin and iv Zosyn for his foot and leg infection (see below), therefore iv Levaquin was added to cover atypical bacterial species. The patient also had been IV hydrated over those 2 days and was felt to have volume overload. His BNP was 422 and with gentle diuresis this decreased to 300-390. He was also felt to have a COPD exacerbation and required IV steroids and nebulizer treatments. He intermittently did not tolerate the BiPAP, refused to have it on, only tolerated a Ventimask and rebreather mask. On 10/15/2018, his daily chest x-ray showed worsening infiltrates bilaterally, the entire left side was abnormal. Because he refused BIPAP and intubation, his saturations were 85-88% on maximal supplemental oxygen, I reached out for transfer to a higher level of care. He was 0% "service connected", therefore not accepted at [facility]. He was accepted in transfer by the Manager Of Revenue at [facility] to their ICU. He was transferred by ambulance on 10/15/2018. 2. Healthcare-associated pneumonia. His chest x-ray showed progressive worsening from the time of admission, especially on the left side. He was continued on his 3 antibiotics as described above at the time of transfer. Cultures were all neg. 3. Pulmonary edema. The patient required starting IV diuretics b.i.d., which gave him negative fluid balance for the 3 days before transfer and BNP had mild improvement. He underwent an Echo, which showed normal LV size, moderate LVH, LVEF greater than 75%, grade 2 diastolic dysfunction, normal RV size and function. He did have findings of severe pulmonary hypertension with PA pressure of 72 mmHg, also aortic stenosis, and mitral stenosis. 4. Acute kidney injury. When he was admitted, his creatinine was 1.0, but with diuresis and IV antibiotics the creatinine increased to 1.4 and 1.6. Electrolytes and renal function was monitored daily. 4. Nausea and vomiting. For the last 3 days of this hospitalization, he had nausea and vomiting after breakfast with a benign exam and the etiology was suspected to be diabetic gastroparesis. He was then started on Reglan ac, which helped his symptoms on the final day that he was here. 5. Cellulitis of the left foot. The patient's presentation had been that of open ulcer of the left great toe with redness of the left foot and austin. For this reason, he underwent a leg MRI to evaluate for osteomyelitis. Osteo was ruled out, but he was found to have cellulitis of the soft tissue of the left leg. He was continued on his IV antibiotics, including Vancomycin to cover Staph and Zosyn to cover Pseudomonas in a diabetic. Orthopedics was following along, no debridement or amputation was necessary. 6. Ischemic leg ulcer. The patient also had workup for leg ischemia, and this showed a left femoral artery occlusion, by Doppler exam. He was put on IV heparin when this was found. The heparin was discontinued for several days because of the blood-tinged sputum (as above), it was resumed in the last 2 days of this hospitalization. Hemoglobin was stable and sputum was only intermittently blood tinged. There had been plans to transfer him for stenting of the left femoral artery; however the above pneumonia and respiratory distress prevented that intervention. 7. Diabetes mellitus type 2 with complications, uncontrolled. His fingerstick glucoses ran 100-140 initially; however, because steroids were used for his COPD, his sugars were in the 130-160 range. He could only tolerate bites of a pureed diet and sips of liquid diet because of needing to be on the Ventimask and desaturating when this came off even briefly. 8. Hypertension. His blood pressure was controlled on his prehospital medications of Prazosin and Metoprolol. 9. History of right below-knee amputation. The stump appeared stable. 10. Aortic stenosis, moderate. This was diagnosed by Echo done on this admission. 11. Mitral stenosis, mild. This was diagnosed by Echo done on this admission. LABORATORY AND IMAGING: Reviewed and summarized above. ALLERGIES: SULFA MEDICATIONS AT THE TIME OF TRANSFER 1. Baby aspirin daily. 2. Lipitor 40 mg every night. 3. DuoNeb inhaler. 4. Loratadine 10 mg daily. 5. Metoprolol 25 mg b.i.d. 6. Prazosin 1 mg daily at night. 7. Protonix b.i.d. 8. Combivent Respimat every 4 hours p.r.n. 9. Zosyn 3.375 grams IV daily. 10. [place] 10/325 mg every 4 hours p.r.n. pain. 11. Dilaudid 1 mg IV every 2 hours p.r.n. pain. 12. Zofran p.r.n. nausea. 13. Compazine IV p.r.n. nausea. 14. Ambien 5 mg q.p.m. p.r.n. insomnia. 15. Vancomycin 1.5 grams every 12 hours. 16. Heparin 5000 units subcutaneous t.i.d. 17. Sliding scale insulin coverage. 18. Glipizide 5 mg b.i.d. 19. Ativan 1 mg every 6 hours p.r.n. agitation. 20. MiraLax 1 packet daily. 21. Heparin drip as described in the hospital course. 22. Vitamin B 500 mg daily. 23. Multivitamin with minerals 1 tablet daily. 24. Florastor 250 mg b.i.d. 25. Morphine 2 mg IV every 2 hours p.r.n. pain or dyspnea. 26. Zinc sulfate 220 mg daily. 27. Vitamin D3 1000 units daily. 28. Levaquin 750 mg daily. 29. Mucinex 600 mg b.i.d. 30. Haldol was given once for agitation when he was on the BiPAP. 31. Lasix 40 mg IV b.i.d. was started in the middle of the hospitalization examination. 32. Nitro paste 2 inches topically every 8 hours, started in the middle of the hospitalization. 33. Potassium chloride 40 mEq replacement x1. 34. Reglan 5 mg IV before meals. 35. Methylprednisolone 125 mg IV b.i.d. 36. Tylenol 650 mg every 4 hours p.r.n. fever. CONDITION AT TRANSFER: Critical. PHYSICAL EXAMINATION VITAL SIGNS: Blood pressure 96/67, heart rate 82, oxygen saturation 88% on a 15 liter Oxymizer mass, respiratory rate 20. HEENT: Reveals him to be disheveled, poor dentition, wearing his Oxymizer mask. NECK: Positive JVD. No carotid bruits. CHEST: Reveals breath sounds on the left side. No wheezing or rales. Clear on the right base anteriorly. HEART: Heart tones distant. No audible murmur. No gallop. ABDOMEN: Soft, positive bowel sounds. Mildly obese. No organomegaly. EXTREMITIES: Right BKA and the stump appears normal. Left leg has no palpable femoral pulse, 1+ edema to the knee. Redness to the mid austin. There is an open ulcer that is approximately 5 x 3 cm on the medial aspect of the distal left great toe which is open to air but had been covered with Betadine. There is tenderness to touch over the left foot and left austin. NEUROLOGIC: Grossly intact. FOLLOWUP: To be determined after his stay at [facility] CODE STATUS: The patient presented to the hospital and wanted to be a FULL CODE. Then advanced care planning was done, and he signed a POLST, and DNR status was established in his last few days of hospitalization here. Time required to complete discharge, chart review, arrangements for transfer and calls for acceptance to a hospital with higher level of care, discussion with the patient, dictation: 65 minutes. CC: PCP Natalie Davila TD: 10/18/2018 15:38 [facility]
== END 2018-10-15 12:50 | disposition short-term general hospital (02) | DRG 299 ==
LOC: ED 10:10 → MS2 12:42 → ICU 10-11 07:44
PROVIDERS: ADMIT Family Medicine; ATTEND Internal Medicine
DX: E11.51 Type 2 diabetes mellitus with diabetic peripheral angiopathy without gangrene (principal); M86.9 Osteomyelitis, unspecified; E11.40 Type 2 diabetes mellitus with diabetic neuropathy, unspecified; I10 Essential (primary) hypertension; J96.02 Acute respiratory failure with hypercapnia; J18.9 Pneumonia, unspecified organism; J96.01 Acute respiratory failure with hypoxia; L03.116 Cellulitis of left lower limb; J44.1 Chronic obstructive pulmonary disease with (acute) exacerbation; N17.9 Acute kidney failure, unspecified; I70.202 Unspecified atherosclerosis of native arteries of extremities, left leg; I77.1 Stricture of artery; E11.69 Type 2 diabetes mellitus with other specified complication; E11.621 Type 2 diabetes mellitus with foot ulcer; L97.529 Non-pressure chronic ulcer of other part of left foot with unspecified severity; E11.42 Type 2 diabetes mellitus with diabetic polyneuropathy; I13.10 Hypertensive heart and chronic kidney disease without heart failure, with stage 1 through stage 4 chronic kidney disease, or unspecified chronic kidney disease; E11.22 Type 2 diabetes mellitus with diabetic chronic kidney disease; N18.9 Chronic kidney disease, unspecified; I27.20 Pulmonary hypertension, unspecified; I08.0 Rheumatic disorders of both mitral and aortic valves; E11.43 Type 2 diabetes mellitus with diabetic autonomic (poly)neuropathy; K31.84 Gastroparesis; E11.65 Type 2 diabetes mellitus with hyperglycemia; F17.200 Nicotine dependence, unspecified, uncomplicated; E78.5 Hyperlipidemia, unspecified; Y95 Nosocomial condition; T38.0X5A Adverse effect of glucocorticoids and synthetic analogues, initial encounter; S92.342D Displaced fracture of fourth metatarsal bone, left foot, subsequent encounter for fracture with routine healing; R45.1 Restlessness and agitation; M65.872 Other synovitis and tenosynovitis, left ankle and foot; F43.10 Post-traumatic stress disorder, unspecified; B35.1 Tinea unguium; L85.9 Epidermal thickening, unspecified; Z66 Do not resuscitate; Z89.611 Acquired absence of right leg above knee; Z91.19 Patient's noncompliance with other medical treatment and regimen; Z79.82 Long term (current) use of aspirin; Z79.51 Long term (current) use of inhaled steroids; Z79.84 Long term (current) use of oral hypoglycemic drugs
CPT/HCPCS: 36415; 36600; 71045; 73630; 73718; 80048; 80053; 80069; 80202; 82040; 82803; 83036; 83605; 83690; 83735; 83880; 84100; 84443; 84484; 85025; 85520; 85651; 86140; 87150; 87275; 87276; 93306; 93926; 94640; 94660; 99283; 99284; A9270; J1815; J2060; J2270; J2765; J3370; J8499; Q0162